=== PATIENT | male | born 1965 | race African-American/Black ===

== ENCOUNTER 2020-12-10 17:08 | Emergency (ER) | payer OTHER, SELFPAY ==
--- NOTE | 2020-12-10 17:12 | ED.SKABFB ---
HPI - Skin/Abscess/Foreign Bdy General Chief complaint: Skin/Abscess/Foreign Body Stated complaint: pos insect sting Time Seen by Provider: 12/10/20 17:12 Source: patient and RN notes reviewed Mode of arrival: ambulatory Limitations: no limitations History of Present Illness HPI narrative: 55 yo male presents to the [facility] with C/O bee sting to the right eye brow. Happened around 1 PM today. States he has been using antiitch cream and took Benadryl and states his swelling continues. Did not get stung in the eye. No blurry vision or change in vision just the eyelid is swelling. Related Data Home Medications Medication Instructions Recorded Confirmed aspirin 81 mg tablet,delayed 81 mg PO DAILY 11/29/19 11/27/20 release Allergies Allergy/AdvReac Type Severity Reaction Status Date / Time venom-honey bee Allergy Intermediate Swelling Verified 12/10/20 16:43 Review of Systems Review of Systems: All systems reviewed & are unremarkable except as noted in HPI and below Constitutional: Constitutional: Reports no additional constitutional complaints, Denies chills and Denies fever(s) Eyes: Eyes: Reports as per HPI, Denies change in vision and Denies photophobia Comments: Eyebrow and eyelid swelling ENT: Reports system reviewed and no additional complaints, except as documented, Denies vertigo, Denies nasal congestion and Denies sore throat Cardiovascular: Cardiovascular: Reports no additional cardiovascular complaints and Denies chest pain Respiratory: Respiratory: Reports no additional respiratory complaints, Denies cough and Denies dyspnea Gastrointestinal: Gastrointestinal: Reports no additional gastrointestinal complaints, Denies abdominal pain, Denies nausea and Denies vomiting Musculoskeletal: Musculoskeletal: Reports no additional musculoskeletal complaints Integumentary/Breasts: Skin/Breast: Reports as per HPI Comments: Swelling right eye lid and eyebrow from bee stings. Neurologic: Reports system reviewed and no additional complaints, except as documented Psychiatric: Psychiatric: Reports no additional psychiatric complaints Allergic/Immunologic: Allergic/Immunologic: Reports no additional allergic/immunologic complaints, Denies lip swelling, Denies throat swelling, Denies tongue swelling and Denies wheezing PMFSH Past Medical History Medical History Essential hypertension HLD (hyperlipidemia) Hypercholesterolemia Hypertension Left shoulder pain Left wrist pain Type 2 diabetes mellitus without complications Wellness examination Family History Family History Mother Carcinoma of colon Social History Social History Smoking packs per day: 0.5 Smoking cigarettes per day: 10.0 Years smoked: 25 Smoking pack-years: 12.50 Smoking status: Former smoker Tobacco type: cigarettes Second hand tobacco smoke exposure: No Smoking end date: 05/24/15 Alcohol intake: current Drinks per week: 2 Substance use: never Substance use type: does not use Gender identity (if verbalized by the patient): Male Comments At the time of my signature, I reviewed and agree with the nursing past medical, surgical, social, and family history. There is no relevant family history pertinent to the patient complaint. Exam Const: General: healthy appearing, no acute distress and alert Nutritional Appearance: well nourished Orientation/consciousness: patient oriented x3 Limitations: no limitations HENMT: Head: normal to inspection Ears: external ears normal, TM's normal bilaterally (After cerumen was removed examined) and Abnormal EAC present cerumen impaction bilateral and excessive cerumen Eyes: Conjunctivae: conjunctivae normal Pupils: Equal, round and reactive pupils present Direct Ophthalmoscopy: no photophobia Neck: Neck: normal visual inspection,
[2020-12-10 17:13] VITALS: BP 176/81; PULSE 72; RESP 16; TEMP 37.1; O2SAT 99
[2020-12-10] MEDS: predniSONE 20 MG TABLET 40 MG PO (17:42)
== END 2020-12-10 17:49 | disposition home or self-care (01) ==
PROVIDERS: Emergency Provider Nurse Practitioner; PCP Family Medicine
DX: T63.441A Toxic effect of venom of bees, accidental (unintentional), initial encounter (principal); H61.23 Impacted cerumen, bilateral; Z87.891 Personal history of nicotine dependence; I10 Essential (primary) hypertension; E78.5 Hyperlipidemia, unspecified; E78.00 Pure hypercholesterolemia, unspecified; E11.9 Type 2 diabetes mellitus without complications
CPT/HCPCS: 69210; 99213; G0463; J7512

== ENCOUNTER 2021-01-29 17:18 | Emergency (ER) | payer OTHER, SELFPAY ==
[2021-01-29 17:25] VITALS: BP 129/79; PULSE 74; RESP 16; TEMP 36.5; O2SAT 99
--- NOTE | 2021-01-29 17:30 | ED.SKABFB ---
HPI - Skin/Abscess/Foreign Bdy General Chief complaint: Skin/Abscess/Foreign Body Stated complaint: pos insect sting Source: patient and RN notes reviewed Limitations: no limitations History of Present Illness HPI narrative: The patient, previously mostly healthy on routine meds, presents with insect sting. Patient states while mowing at midday today, he sustained several hymenoptera/ground yellowjacket bee bites to his scalp along his neck hairline. He then took some Benadryl and fell asleep; currently has mild discomfort and swelling at the affected site. No other rash/eruption, cough, wheeze, hives, other swelling, oral edema. Related Data Home Medications Medication Instructions Recorded Confirmed aspirin 81 mg tablet,delayed 81 mg PO DAILY 11/29/19 11/27/20 release Allergies Allergy/AdvReac Type Severity Reaction Status Date / Time venom-honey bee Allergy Intermediate Swelling Verified 12/10/20 16:43 Review of Systems Review of Systems: General/Constitutional: No weight loss,fever Eyes: N0: Redness,discharge Ears/Nose/Throat: No: Epistaxis,ear discharge Respiratory: Denies: Hemoptysis Gastrointestinal: No Vomiting, Bleeding-rectal Skin: No Lumps, REPORTS eruption Neurologic: No Focal Weakness,Sz Hematologic: Denies: Petechiae/Purpura Psychiatric: No: Suicida ideationl All Other Systems: Reviewed and Negative [facility] [place] Past Medical History Medical History Essential hypertension HLD (hyperlipidemia) Hypercholesterolemia Hypertension Left shoulder pain Left wrist pain Type 2 diabetes mellitus without complications Wellness examination Family History Family History Mother Carcinoma of colon Social History Social History Smoking packs per day: 0.5 Smoking cigarettes per day: 10.0 Years smoked: 25 Smoking pack-years: 12.50 Smoking status: Former smoker Tobacco type: cigarettes Second hand tobacco smoke exposure: No Smoking end date: 05/24/15 Alcohol intake: current Drinks per week: 2 Substance use: never Substance use type: does not use Gender identity (if verbalized by the patient): Male Sexual Orientation (if Verbalized by the Patient): Straight or Heterosexual Comments At time of signature, agree with nursing past medical, surgical, social and family history. There is no relevant family history pertinent to the presenting complaint Exam Narrative: General Appearance: Well nourished, Normocephalic Eye: PERRLA, Conjunctiva clear Ear: External ear normal Nose: Normal nose, Nare clear Mouth/Throat: Normal appearing, Supple Respiratory: Airway patent, No respiratory distress Musculoskeletal: Moves all extremities, Non tender Skin: Warm, Dry; scattered puncta with surrounding swelling neck hairline Neurological: A&O x3, Normal affect Course Vital Signs Vital signs: Vital Signs Temperature 97.7 F 01/29/21 17:25 Pulse Rate 74 01/29/21 17:25 Respiratory Rate 16 01/29/21 17:25 Blood Pressure 129/79 01/29/21 17:25 Pulse Oximetry 99 01/29/21 17:25 Temperature 97.7 F 01/29/21 17:25 Pulse Rate 74 01/29/21 17:25 Respiratory Rate 16 01/29/21 17:25 Blood Pressure 129/79 01/29/21 17:25 Pulse Oximetry 99 01/29/21 17:25 Discharge Plan Discharge Clinical Impression: Insect bite Qualifiers: Encounter type: initial encounter Site of insect bite: unspecified part of neck Qualified Code(s): S10.96XA - Insect bite of unspecified part of neck, initial encounter Patient Disposition: Home, Self-Care Condition: Stable Instructions: Insect Bite or Sting (ED) Prescriptions: New prednisone 20 mg tablet 60 mg PO DAILY Qty: 9 RF: 0 loratadine [Claritin] 10 mg tablet 10 mg PO DAILY Qty: 20 RF: 1 No Action aspirin [Adult Low Dose Aspirin] 81 mg tablet,delayed r
== END 2021-01-29 17:37 | disposition home or self-care (01) ==
PROVIDERS: Emergency Provider Emergency Medicine; PCP Family Medicine
DX: T63.461A Toxic effect of venom of wasps, accidental (unintentional), initial encounter (principal); I10 Essential (primary) hypertension; E78.5 Hyperlipidemia, unspecified; E78.00 Pure hypercholesterolemia, unspecified; E11.9 Type 2 diabetes mellitus without complications; Z87.891 Personal history of nicotine dependence
CPT/HCPCS: 99213; G0463

== ENCOUNTER 2021-09-03 00:24 | Day surgery (SDC) | payer OTHER, SELFPAY ==
[2021-08-21 15:26] VITALS: BMI 27.8
--- NOTE | 2021-09-02 10:57 | P.PNAN_ITS ---
Anes - Initial Pre Proc Eval Procedure: Operation Date: 09/03/21 09:30 Proposed Procedures p Screening Colonoscopy - Ramon Tracey MD Date/Time: 09/02/21 10:57 Surgeon: Ramon Tracey MD Pre Op Diagnosis: hx of colon polyps,family hx of colon ca,neoplasm Patient Data Age: 56 Gender: M Height: 1.83 m Weight: 93.2 kg Allergies Allergy/AdvReac Type Severity Reaction Status Date / Time venom-honey bee Allergy Intermediate Swelling Verified 09/03/21 08:19 Home Medications Medication Instructions Recorded Confirmed Type aspirin 81 mg tablet,delayed 81 mg PO DAILY 11/29/19 08/21/21 History release lisinopril 10 1 tablet PO DAILY #90 tablet 05/01/21 08/21/21 Rx mg-hydrochlorothiazide 12.5 mg tablet pravastatin 10 mg tablet 10 mg PO DAILY #90 tablet 05/01/21 08/21/21 Rx loratadine [Claritin] 10 mg PO DAILY PRN 08/21/21 08/21/21 History Patient hx anesthesia problems: none Family hx anesthesia problems: none Results Review: All pre-operative results and documents have been reviewed as part of the pre-operative evaluation. [facility] Past Medical History Medical History Essential hypertension HLD (hyperlipidemia) Hypercholesterolemia Hypertension Left shoulder pain Left wrist pain Type 2 diabetes mellitus without complications Wellness examination Family History Family History Mother Carcinoma of colon Social History Social History Smoking packs per day: 1 Smoking cigarettes per day: 20.0 Years smoked: 20 Smoking pack-years: 20.00 Smoking status: Former smoker Tobacco type: cigarettes Second hand tobacco smoke exposure: No Smoking end date: 05/24/15 Alcohol intake: current Drinks per week: 5 Substance use: never Substance use type: does not use Living arrangements: with friend(s) Gender identity (if verbalized by the patient): Male Sexual Orientation (if Verbalized by the Patient): Straight or Heterosexual Spiritual care concerns: No Anes - Eval Final PreProcedure Day of Procedure 09/02/21 10:57 Patient weight: overweight Heart: regular rate and rhythm Lungs: clear to auscultation and normal air movement Airway: Mallampati scale class II Neurological: alert and oriented Last oral intake: >/= 8 hours ASA classification: III Emergent: no Anesthetic plan: proceed Anesthesia type and monitoring: general GIVS and standard monitoring Results Review: All pre-operative results and documents have been reviewed as part of the pre-operative evaluation. Informed Consent: The patient's anesthetic plan and its attendant risks and benefits were discussed with the patient/family/POA. Questions were solicited and answers provided to the satisfaction of the patient/family/POA.
--- NOTE | 2021-09-02 17:39 | PM.HPGS ---
History of Present Illness History of Present Illness Consent: Risks, benefits, and alternatives have been discussed and questions answered. Patient agrees to proceed with procedure. Chief complaint: hx of colon polyps,family hx of colon ca,neoplasm Narrative: Renny Askew is a 56 year old male Referred for colon cancer screening. He had 2 adenomas removed about 5 years ago and also has a family history of colon cancer. His mother had colon cancer. Review of Systems Review of Systems: All systems reviewed & are unremarkable except as noted in HPI and below PMFSH Past Medical History Medical History Essential hypertension HLD (hyperlipidemia) Hypercholesterolemia Hypertension Left shoulder pain Left wrist pain Type 2 diabetes mellitus without complications Wellness examination Family History Family History Mother Carcinoma of colon Social History Social History Smoking packs per day: 1 Smoking cigarettes per day: 20.0 Years smoked: 20 Smoking pack-years: 20.00 Smoking status: Former smoker Tobacco type: cigarettes Second hand tobacco smoke exposure: No Smoking end date: 05/24/15 Alcohol intake: current Drinks per week: 5 Substance use: never Substance use type: does not use Living arrangements: with friend(s) Gender identity (if verbalized by the patient): Male Sexual Orientation (if Verbalized by the Patient): Straight or Heterosexual Spiritual care concerns: No Meds Home Medications and Allergies Home Medications Medication Instructions Recorded Confirmed Type aspirin 81 mg tablet,delayed 81 mg PO DAILY 11/29/19 08/21/21 History release lisinopril 10 1 tablet PO DAILY #90 tablet 05/01/21 08/21/21 Rx mg-hydrochlorothiazide 12.5 mg tablet pravastatin 10 mg tablet 10 mg PO DAILY #90 tablet 05/01/21 08/21/21 Rx loratadine [Claritin] 10 mg PO DAILY PRN 08/21/21 08/21/21 History Allergies Allergy/AdvReac Type Severity Reaction Status Date / Time venom-honey bee Allergy Intermediate Swelling Verified 09/03/21 08:19 Exam Resp: Auscultation: clear to auscultation bilaterally Cardio: Rate: regular rate Rhythm: regular rhythm GI: GI Palp: Yes Soft to palpation and No Tenderness to palpation present (GI) Assessment and Plan Assessment and plan (1) Colon cancer screening: Code(s): Z12.11 - Encounter for screening for malignant neoplasm of colon Status: Acute Assessment and Plan: Colonoscopy with possible biopsy or polypectomy or cautery or injection of substances.
[2021-09-03 08:20] VITALS: BP 141/88; PULSE 58; RESP 17; TEMP 36.2; O2SAT 100
[2021-09-03] MEDS: LACTATED RINGERS 1,000 ML 150 ML IV CONT (08:28)
[2021-09-03] MEDS: SIMETHICONE ORAL SUSPENSION 20 MG/0.3 ML 30 ML BOTTLE 0.6 ML IRRIGATION (09:20)
[2021-09-03 09:29] VITALS: BP 109/70; PULSE 59; RESP 19; O2SAT 97
[2021-09-03 09:39] VITALS: BP 127/80; PULSE 67; RESP 26; O2SAT 98
== END 2021-09-03 09:57 | disposition home or self-care (01) ==
PROVIDERS: PCP Family Medicine; Visit Provider Internal Medicine Gastroenterology
PROC: 0DJD8ZZ Inspection of Lower Intestinal Tract, Via Natural or Artificial Opening Endoscopic (ICD-10-PCS; CPT 45378; principal; 2021-09-03 09:30)
DX: Z12.11 Encounter for screening for malignant neoplasm of colon (principal); Z86.010 Personal history of colon polyps; Z80.0 Family history of malignant neoplasm of digestive organs; I10 Essential (primary) hypertension; E78.5 Hyperlipidemia, unspecified; E78.00 Pure hypercholesterolemia, unspecified; E11.9 Type 2 diabetes mellitus without complications; Z87.891 Personal history of nicotine dependence
CPT/HCPCS: 45378; J2704; J7120

== ENCOUNTER 2021-10-03 19:25 | Emergency (ER) | payer OTHER, SELFPAY ==
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
[2021-10-03 19:44] VITALS: BP 167/78; PULSE 83; RESP 18; TEMP 37.1; O2SAT 97
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
[2021-10-03] MEDS: IBUPROFEN 600 MG TABLET PO (20:57)
[2021-10-03 21:59] VITALS: BP 137/84; PULSE 68; RESP 16; O2SAT 98
== END 2021-10-03 21:59 | disposition home or self-care (01) ==
LOC: ANHED 21:25
PROVIDERS: Emergency Provider Emergency Medicine; PCP Family Medicine
DX: S16.1XXA Strain of muscle, fascia and tendon at neck level, initial encounter (principal); S29.9XXA Unspecified injury of thorax, initial encounter; I10 Essential (primary) hypertension; E78.5 Hyperlipidemia, unspecified; E11.9 Type 2 diabetes mellitus without complications; Z79.82 Long term (current) use of aspirin; Z87.891 Personal history of nicotine dependence; M47.812 Spondylosis without myelopathy or radiculopathy, cervical region; M47.814 Spondylosis without myelopathy or radiculopathy, thoracic region; V53.5XXA Driver of pick-up truck or van injured in collision with car, pick-up truck or van in traffic accident, initial encounter
CPT/HCPCS: 71046; 72072; 72125; 99284; A9270

== ENCOUNTER 2022-03-12 09:33 | Outpatient (CLI) | payer OTHER, SELFPAY ==
--- NOTE | ~2022-03-12 | US_ITS ---
EXAMINATION: US carotid duplex BI DATE: 03/12/2022 10:16 INDICATION: Syncope TECHNIQUE: Grayscale, color Doppler, and pulsed Doppler images of the cervical carotid arteries were obtained. The degree of vessel stenosis is placed in one of the following categories: normal, <50%, 5 0-69%, >=70% but less than near-occlusion, near-occlusion, or total occlusion. Note that percent sten osis relative to normal distal artery lumen diameter is indirectly measured from velocity measurement s as described by Best, et al. Radiology 2003; [id number]. Notes: Normal: Peak systolic velocity <125 centimeters/sec and no plaque <50%. Peak systolic velocity <125 ( EDV <40; ICA/CCA PSV ratio <2.0; used these factors only a tandem lesions or low cardiac output or co ntralateral disease) 50-69 %: PSV 125-230 (EDV 40-100; ratio 2-4) >= 70% but less than near occlusion: PSV greater than 230 (EDV > 100; ratio> 4.0) Near Occlusion: PSV that is variable; markedly narrowed lumen Occlusion: Absent flow on color/spectral Doppler and no lumen on castillo scale. COMPARISON: None. FINDINGS: RIGHT: The right common carotid artery (CCA) peak systolic velocity (PSV) is 111 cm/s. The right internal ca rotid artery (ICA) PSV is 54 cm/s. The right ICA end-diastolic velocity (EDV) is 15 cm/s. The right I CA/CCA PSV ratio is 0.9. The external carotid artery (ECA) PSV is 106 cm/s. There is antegrade flow i n the right vertebral artery. LEFT: The left CCA PSV is 116 cm/s. The left ICA PSV is 83 cm/s. The left ICA EDV is 37 cm/s. The left ICA/ CCA PSV ratio is 1.3. The ECA PSV is 148 cm/s. There is antegrade flow in the left vertebral artery. IMPRESSION: 1. Less than 50% stenosis in the right internal carotid artery by sonographic criteria. 2. Less than 50% stenosis in the left internal carotid artery by sonographic criteria. Reviewed, dictated and finalized at location A. IMPRESSION: 1. Less than 50% stenosis in the right internal carotid artery by sonographic amparo mejias. 2. Less than 50% stenosis in the left internal carotid artery by sonographic la nena fink.
== END 2022-03-12 09:34 | disposition home or self-care (01) ==
LOC: ANHIMG 09:34
PROVIDERS: PCP Family Medicine; Visit Provider Physician Assistant
DX: R55 Syncope and collapse (principal); I65.23 Occlusion and stenosis of bilateral carotid arteries
CPT/HCPCS: 93880

== ENCOUNTER 2022-08-25 11:19 | Outpatient (CLI) | payer OTHER, SELFPAY ==
--- NOTE | ~2022-08-25 | CT_ITS ---
EXAMINATION: CT lung screening DATE: 08/25/2022 11:50 INDICATION: lung cancer screening TECHNIQUE: Computed tomography (CT) of the chest was performed without intravenous contrast. Addition al 3D reconstructions utilizing coronal maximum intensity projection (MIP) were performed. Automated exposure control and iterative reconstruction technique were employed. The dose-length product was 12 9.55 mGy-cm. COMPARISON: None FINDINGS: Small calcified nodule at the left apex. 1 mm not clearly calcified nodules in the lingula and right lower lobe. Minimal discoid atelectasis at the caudal aspect of the lingula. No pneumonia, pulmonary edema, pleural effusion or pneumothorax. Heart size is normal. No pericardial effusion. Thoracic aort a is normal in caliber. No pathologically enlarged thoracic lymphadenopathy. Minimal gynecomastia. Mi nimal upper thoracic dextrocurvature. IMPRESSION: 1. . Lung-RADS category 2: Benign appearance or behavior. Continue annual screening with noncontrast low-dose chest CT in 12 months. Reviewed, dictated and finalized at location A. IMPRESSION: 1. . Lung-RADS category 2: Benign appearance or behavior. Continue annual scree dieter with noncontrast low-dose chest CT in 12 months.
== END 2022-08-25 11:20 | disposition home or self-care (01) ==
PROVIDERS: PCP Family Medicine; Visit Provider Physician Assistant
DX: Z12.2 Encounter for screening for malignant neoplasm of respiratory organs (principal); Z87.891 Personal history of nicotine dependence
CPT/HCPCS: 71271

== ENCOUNTER 2022-11-05 07:26 | Outpatient (CLI) | payer OTHER, SELFPAY ==
--- NOTE | 2022-11-05 07:36 | ECHO_ITS ---
Patient Info Name: Renny Askew Age: 57 years : 1965 Gender: Male Ht: 72 in Wt: 200 lbs BSA: 2.16 m2 HR: 60 bpm BP: 111 / 78 mmHg Technical Quality: Good Exam Date: 11/05/2022 7:46 AM Exam Location: [facility] Patient Status: Outpatient Admit Date: 11/05/2022 Staff Ordering Physician: Donovan Valente DO Inspection Engineer: Rayna Quiroz RDCS Attending Provider: Donovan Valente DO Referring Physician: Ambrosio FELICIANO; Exam Type: CA echo doppler color flow Study Info Indications R06.09 - Other forms of dyspnea Complete two-dimensional, color flow and Doppler transthoracic echocardiogram is performed. Summary 1. Complete two-dimensional, color flow and Doppler transthoracic echocardiogram is performed. 2. Left ventricular chamber dimension is normal. 3. Left ventricular systolic function is normal, estimated at 60-65%. 4. The left ventricular diastolic function is grade I diastolic dysfunction. 5. E/e' 5 is not elevated. 6. Global longitudinal strain is abnormal at -15.4%. 7. Left atrial chamber dimension is mildly enlarged. 8. There is mild mitral valve regurgitation. 9. There is trace tricuspid valve regurgitation. Left Ventricle E/e' 5 is not elevated. Global longitudinal strain is abnormal at -15.4%. Left ventricular chamber dimension is normal. Left ventricular systolic function is normal, estimated at 60-65%. The left ventricular diastolic function is grade I diastolic dysfunction. Right Ventricle Right ventricular systolic function is normal and with normal TAPSE 2.4 cm. Right ventricular chamber dimension is normal. Left Atria Left atrial chamber dimension is mildly enlarged. Right Atria Right atrial chamber dimension is normal. Aortic Valve The aortic valve is trileaflet. There is no aortic valve stenosis. There is no aortic valve regurgitation. Pulmonic Valve There is no pulmonic regurgitation. Mitral Valve There is no mitral valve stenosis. There is mild mitral valve regurgitation. Tricuspid Valve There is trace tricuspid valve regurgitation. RVSP is not calculated due to an inadequate TR jet. Pericardium/Pleural There is no pericardial effusion. Inferior Vena Cava Normal inferior vena cava with >50% collapse upon inspiration consistent with normal right atrial pressure, 5 mmHg. Aorta The aortic root size at the sinus of Valsalva is normal. Left Ventricular Outflow Tract Name Value Normal LVOT 2D LVOT Diameter 2.0 cm LVOT Doppler LVOT Peak Gradient 5 mmHg LVOT Mean Gradient 2 mmHg LVOT VTI 22 cm LVOT VTI/AV VTI Ratio 0.9 LVOT Stroke Volume 72 ml LVOT CO 3.7 l/min LVOT CI 1.7 l/min/m2 Pulmonic Valve Name Value Normal RVOT Doppler RVOT Peak Gradient 1 mmHg PV Doppler
== END 2022-11-05 07:27 | disposition home or self-care (01) ==
LOC: ANHCARD 07:28
PROVIDERS: PCP Family Medicine; Visit Provider Internal Medicine Cardiovascular Disease
DX: R06.09 Other forms of dyspnea (principal); R93.1 Abnormal findings on diagnostic imaging of heart and coronary circulation; I34.0 Nonrheumatic mitral (valve) insufficiency
CPT/HCPCS: 93306

== ENCOUNTER 2023-02-15 09:23 | Outpatient (CLI) | payer OTHER, SELFPAY ==
--- NOTE | 2023-02-15 10:30 | NEURO_ITS ---
Impression: Patient reports numbness and tingling in both hands. # Mild, left Carpal Tunnel Syndrome. # Early changes suggestive of evolving, right Carpal Tunnel Syndrome. # Normal needle/EMG exam. # Clinical correlation recommended. Nerve Conduction Studies Anti Sensory Summary Table Stim Site NR Peak (ms) P-T Amp (?V) Site1 Site2 Delta-P (ms) Dist (cm) Benedict (m/s) Left Median Anti Sensory (2-3nd Digit) Wrist 4.5 23.5 Wrist 2-3nd Digit 4.5 14.0 31 Wrist 5.0 13.2 Wrist 2-3nd Digit 4.5 14.0 31 Right Median Anti Sensory (2-3nd Digit) Wrist 3.9 25.9 Wrist 2-3nd Digit 3.9 14.0 36 Wrist 3.8 28.2 Wrist 2-3nd Digit 3.9 14.0 36 Left Radial Anti Sensory (Base 1st Digit) Wrist 1.9 33.4 Wrist Base 1st Digit 1.9 0.0 Right Radial Anti Sensory (Base 1st Digit) Wrist 2.0 44.1 Wrist Base 1st Digit 2.0 0.0 Left Ulnar Anti Sensory (5th Digit) Wrist 2.8 27.4 Wrist 5th Digit 2.8 14.0 50 Right Ulnar Anti Sensory (5th Digit) Wrist 2.2 37.8 Wrist 5th Digit 2.2 14.0 64 Motor Summary Table Stim Site NR Onset (ms) O-P Amp (mV) Site1 Site2 Delta-0 (ms) Dist (cm) Benedict (m/s) Left Median Motor (Abd Poll Brev) Wrist 4.2 7.7 Elbow Wrist 4.1 23.0 56 Elbow 8.3 7.1 Right Median Motor (Abd Poll Brev) Wrist 3.7 7.0 Elbow Wrist 4.0 24.0 60 Elbow 7.7 6.4 Left Ulnar Motor (Abd Dig Minimi) Wrist 2.4 5.8 A Elbow Wrist 5.3 30.0 57 A Elbow 7.7 4.6 B Elbow Wrist 3.5 21.0 60 B Elbow 5.9 5.0 Right Ulnar Motor (Abd Dig Minimi) Wrist 2.3 5.6 A Elbow Wrist 5.4 30.0 56 A Elbow 7.7 4.2 B Elbow Wrist 3.6 21.0 58 B Elbow 5.9 4.5 F Wave Studies NR F-Lat (ms) L-R F-Lat (ms) Left Median (Mrkrs) (Abd Poll Brev) 29.94 0.10 Right Median (Mrkrs) (Abd Poll Brev) 29.84 0.10 Left Ulnar (Mrkrs) (Abd Dig Min) 28.43 1.44 Right Ulnar (Mrkrs) (Abd Dig Min) 29.87 1.44 EMG Side Muscle Nerve Root Ins Act Fibs Amp Dur Recrt Comment Right 1stDorInt Ulnar C8-T1 Nml Nml Nml Nml Nml Right Ext Indicis Radial (Post Int) C7-8 Nml Nml Nml Nml Nml Right Ext Digitorum Radial (Post Int) C7-8 Nml Nml Nml Nml Nml Right BrachioRad Radial C5-6 Nml Nml Nml Nml Nml Right PronatorTeres Median C6-7 Nml Nml Nml Nml Nml Right Abd Poll Brev Median C8-T1 Nml Nml Nml Nml Nml Left 1stDorInt Ulnar C8-T1 Nml Nml Nml Nml Nml Left Ext Indicis Radial (Post Int) C7-8 Nml Nml Nml Nml Nml Left Ext Digitorum Radial (Post Int) C7-8 Nml Nml Nml Nml Nml Left BrachioRad Radial C5-6 Nml Nml Nml Nml Nml Left PronatorTeres Median C6-7 Nml Nml Nml Nml Nml Left Abd Poll Brev Median C8-T1 Nml Nml Nml Nml Nml MTDD
== END 2023-02-15 09:24 | disposition home or self-care (01) ==
LOC: ANHNEURO 09:23
PROVIDERS: PCP Family Medicine; Visit Provider Family Medicine
DX: G56.03 Carpal tunnel syndrome, bilateral upper limbs (principal)
CPT/HCPCS: 95886; 95911

== ENCOUNTER 2023-04-24 11:24 | Emergency (ER) | payer OTHER, SELFPAY ==
[2023-04-24 11:31] VITALS: BP 140/103; PULSE 65; RESP 16; TEMP 36.7; O2SAT 100
--- NOTE | 2023-04-24 12:16 | ED.URI ---
HPI - URI/Sore Throat General Chief Complaint: Upper Respiratory Infection Stated Complaint: Cough Time Seen by Provider: 04/24/23 12:10 Source: patient, RN notes reviewed and old records reviewed Mode of arrival: ambulatory Limitations: no limitations History of Present Illness HPI Narrative: 58 year old male presents to express care with complaints of of hoarseness and cough since Wednesday. Patient reports that he has been taking Mucinex for his symptoms and the mucous is thick yellow and feels like it is getting stuck in his throat.Patient states that he called his doctor after testing negative for COVID on the and his PCP called in Tessalon Perles and also Medrol dose pack. Patient denies any body aches,reports that he has no fever, chills or sweats. MD elicited complaint: cough Onset (ago): day(s) (5 days) Severity: moderate Description of mucous: yellow Able to tolerate fluids by mouth: Yes Treatments prior to arrival: other (Mucinex, tessalon perles and medrol dose pack) Related Data Allergies Allergy/AdvReac Type Severity Reaction Status Date / Time venom-honey bee Allergy Intermediate Swelling Verified 03/25/23 11:03 Review of Systems Review of Systems: CONSTITUTIONAL: Reports malaise, no chills, sweats, or fever. EYES: Denies visual changes, redness, or discharge. ENT: Reports rhinorrhea, congestion, sinus pain,no otalgia and states itchy throat. CARDIOVASCULAR: Denies chest pain, palpitations, or edema. RESPIRATORY: Reports cough.? Denies dyspnea. GASTROINTESTINAL: Denies abdominal pain, nausea, vomiting, diarrhea SKIN: Denies rash or itching. MUSCULOSKELETAL: Denies myalgia. NEUROLOGIC: Denies headache. All systems reviewed & are unremarkable except as noted in HPI and below PMFSH Past Medical History Medical History (Updated 04/25/23 @ 00:00 by Background Daemon) Essential hypertension HLD (hyperlipidemia) Hypercholesterolemia Hypertension Left shoulder pain Left wrist pain Type 2 diabetes mellitus without complications Wellness examination Surgical History Surgical History (Updated 04/26/23 @ 21:12 by Cathy Mancuso NP) History of skin graft Family History Family History Mother Carcinoma of colon Social History Social History Smoking packs per day: 1 Smoking cigarettes per day: 20.0 Years smoked: 20 Smoking pack-years: 20.00 Smoking status: Former smoker Tobacco type: cigarettes Second hand tobacco smoke exposure: No Smoking end date: 05/24/15 Alcohol intake: current Drinks per week: 5 Substance use: never Substance use type: does not use Living arrangements: with friend(s) Occupation/Education: occupation Gender identity (if verbalized by the patient): Male Sexual Orientation (if Verbalized by the Patient): Straight or Heterosexual Spiritual care concerns: No Comments At time of signature, agree with nursing past medical, surgical, social and family history. There is no relevant family history pertinent to the presenting complaint Exam Narrative: GENERAL: Well-appearing, well-nourished, and in no acute distress. HEAD: Normocephalic EYES: PERRLA, conjunctivae clear ENT: Nares clear, turbinates edematous and erythematous, clear discharge. Mucous membranes moist. TM pearly castillo with dull light reflex bilaterally; no tragal tenderness. Oropharynx erythematous without lesions. Tonsils not enlarged and without exudate, no drooling, no hoarseness, no trismus, uvula midline.post nasal drainage NECK: Supple. No lymphadenopathy CHEST: Clear to auscultation, breath sounds equal. No wheezing, rhonchi, rales, or stridor. No respiratory distress, speaks in full sentences.cough noted,SAO2 100% on room air HEART: Regular rate and rhythm. No murmur heard. SKIN: Warm, dry, no rash. NEURO: Alert and oriented x3. PSY
== END 2023-04-24 12:44 | disposition home or self-care (01) ==
PROVIDERS: Emergency Provider Registered Nurse; PCP Family Medicine
DX: J06.9 Acute upper respiratory infection, unspecified (principal); Z87.891 Personal history of nicotine dependence; I10 Essential (primary) hypertension; E78.5 Hyperlipidemia, unspecified; E78.00 Pure hypercholesterolemia, unspecified; E11.9 Type 2 diabetes mellitus without complications
CPT/HCPCS: 99213; G0463

== ENCOUNTER 2023-05-05 14:53 | Outpatient (CLI) | payer OTHER, SELFPAY ==
--- NOTE | ~2023-05-05 | XR_ITS ---
EXAMINATION: XR chest 2V Exam Date/Time: 05/05/2023 15:02 PACKAGING MANAGER HISTORY: R05.9 - Cough, unspecified Comparison: 10/03/2021. RESULT: Lines, tubes, and devices: None. Lungs and pleura: Clear. Cardiomediastinal silhouette: Stable. Other: No acute osseous or upper abdominal finding. IMPRESSION: No acute cardiopulmonary process. Reviewed, dictated and finalized at location K. AGING MANAGER
== END 2023-05-05 14:54 | disposition home or self-care (01) ==
PROVIDERS: PCP Family Medicine; Visit Provider Family Medicine
DX: R05.9 Cough, unspecified (principal)
CPT/HCPCS: 71046

== ENCOUNTER 2023-08-10 11:33 | Outpatient (CLI) | payer OTHER, SELFPAY ==
--- NOTE | ~2023-08-10 | XR_ITS ---
EXAM: XR_[id number]_CR DATE: 08/10/2023 11:50 HISTORY: NON TRAUMA NECK AND RIGHT SHOULDER PAIN . COMPARISON: 12/20/2006. FINDINGS: Craniocervical association and atlantoaxial joint are aligned. No prevertebral soft tissue swelling. Vertebral bodies are aligned. Cervical straightening. Vertebral body heights are maintaine d. Normal disc spaces. Disc space narrowing and marginal osteophytosis at C2-3 through C6-7, moderate at C5-6 and C6-7. Multilevel mild facet sclerosis. IMPRESSION: Moderate degenerative disc disease at C5-6 and C6/7. Multilevel mild facet arthropathy. Reviewed, dictated and finalized at location K. IMPRESSION: Moderate degenerative disc disease at C5-6 and C6/7. Multilevel mil d facet arthropathy.
== END 2023-08-10 11:34 | disposition home or self-care (01) ==
PROVIDERS: PCP Family Medicine; Visit Provider Family Medicine
DX: M50.322 Other cervical disc degeneration at C5-C6 level (principal)
CPT/HCPCS: 72040

== ENCOUNTER 2023-09-08 14:04 | Outpatient (CLI) | payer OTHER, SELFPAY ==
--- NOTE | ~2023-09-08 | CT_ITS ---
EXAMINATION:CT lung screening DATE: 09/08/2023 14:38 INDICATION: Personal history of nicotine dependence. Smoker who quit 7 years ago with 30 pack year hi story. TECHNIQUE: Computed tomography (CT) of the chest was performed without intravenous contrast. Automate d exposure control and iterative reconstruction technique were employed. The dose-length product (DLP ) was 134.24 mGy-cm. COMPARISON: None. FINDINGS: The lungs demonstrate mild atelectasis. A calcified left lung nodule is consistent with old granulomatous disease. No pleural effusion. The heart size is normal. No pericardial effusion. There is mild bilateral gynecomastia. There is mild thoracic spondylosis. IMPRESSION: 1. Lung-RADS category 1: Negative. Continue annual screening with noncontrast low-dose chest CT in 12 months. Reviewed, dictated and finalized at location E. IMPRESSION: 1. Lung-RADS category 1: Negative. Continue annual screening with noncontrast l ow-dose chest CT in 12 months.
== END 2023-09-08 14:05 | disposition home or self-care (01) ==
PROVIDERS: PCP Family Medicine; Visit Provider Family Medicine
DX: Z12.2 Encounter for screening for malignant neoplasm of respiratory organs (principal); Z87.891 Personal history of nicotine dependence
CPT/HCPCS: 71271

== ENCOUNTER 2024-03-03 19:03 | Emergency (ER) | payer OTHER, SELFPAY ==
[2024-03-03 19:09] VITALS: BP 121/71; PULSE 76; RESP 16; TEMP 36.6; O2SAT 97
--- NOTE | 2024-03-03 19:11 | ED.URI ---
HPI - URI/Sore Throat General Chief Complaint: Upper Respiratory Infection Stated Complaint: cough,congestion Source: patient Mode of arrival: ambulatory Limitations: no limitations History of Present Illness HPI Narrative: 59-year-old male history of hypertension and diabetes presented for complaint of productive cough x1 week. Also reports nasal congestion and pressure. PCP advised otc meds for symptoms for allergies and mucous without improvement. Endorses bilateral lower rib pain at times with coughing. Cough is worse when laying down. Denies chest pain, palpitations, sob, wheezing, n/v/d/f/c. MD elicited complaint: cough Related Data Allergies Allergy/AdvReac Type Severity Reaction Status Date / Time venom-honey bee Allergy Intermediate Swelling Verified 01/27/24 15:54 Review of Systems Review of Systems: CONSTITUTIONAL: Denies body aches, fever, chills, or sweats. EYES: Denies visual changes, redness, or discharge. ENT: Denies rhinorrhea, congestion, sore throat, or otalgia. CARDIOVASCULAR: Denies chest pain, palpitations, or edema. RESPIRATORY: Reports cough,denies sob, wheezing. GASTROINTESTINAL: Denies abdominal pain, nausea, vomiting, or diarrhea. SKIN: Denies rash, itching, or wounds. MUSCULOSKELETAL: Denies back pain, joint pain, or myalgia. NEUROLOGIC: Denies headache, numbness, tingling, or weakness. All systems reviewed & are unremarkable except as noted in HPI and below PMFSH Past Medical History Medical History Essential hypertension HLD (hyperlipidemia) Hypercholesterolemia Hypertension Left shoulder pain Left wrist pain Type 2 diabetes mellitus without complications Wellness examination Surgical History Surgical History History of skin graft Family History Family History Mother Carcinoma of colon Social History Social History Social History: Smoking packs per day: 1 Smoking cigarettes per day: 20.0 Years smoked: 20 Smoking pack-years: 20.00 Smoking status: Former smoker Tobacco type: cigarettes Second hand tobacco smoke exposure: No Smoking end date: 05/24/15 Alcohol intake: current Drinks per week: 5 Substance use: never Substance use type: does not use Do You Feel Safe in your Home?: Yes Lack of Transportation: No Lack of Food: Never True Current Housing: I Have Housing Concerned About Future Housing: No Difficulty Paying Gas/Electric Bills: No Difficulty Paying for Meds: No Currently Unemployed: No Education: Don't Know Difficulty w/ Childcare or Family Care: No Living arrangements: with friend(s) Occupation/Education: occupation Gender identity (if verbalized by the patient): Male Sexual Orientation (if Verbalized by the Patient): Straight or Heterosexual Spiritual care concerns: No Comments At time of signature, I have reviewed and agree with nursing past medical, surgical, social and family history unless otherwise noted. Please see nursing chart for further information. There is no relevant family history pertinent to the presenting complaint Exam Narrative: GENERAL: Well-appearing, in no acute distress. EYES: EOMI. No redness or drainage. Conjunctivae normal. ENT: Mucous membranes pink and moist. No rhinorrhea. TMs normal bilaterally. Throat normal. Uvula midline. NECK: Normal AROM. Supple. CHEST: No respiratory distress. lungs clear to all henao. HEART: Regular rate and rhythm. No murmur appreciated. EXTREMITIES: Normal range of motion. No edema. SKIN: Warm, dry, no rash. Capillary refill normal. Normal skin turgor. NEURO: Alert and oriented x3. Gait steady. Course Course Emergency Course: Patient is aware of diagnosis, understands and agrees to treatment plan. Aly
== END 2024-03-03 19:26 | disposition home or self-care (01) ==
PROVIDERS: Emergency Provider Nurse Practitioner Family; PCP Family Medicine
DX: J40 Bronchitis, not specified as acute or chronic (principal); Z87.891 Personal history of nicotine dependence; I10 Essential (primary) hypertension; E78.5 Hyperlipidemia, unspecified; E78.00 Pure hypercholesterolemia, unspecified; E11.9 Type 2 diabetes mellitus without complications
CPT/HCPCS: 99213; G0463

== ENCOUNTER 2024-05-21 13:17 | Emergency (ER) | payer OTHER, SELFPAY ==
[2024-05-21 13:26] VITALS: BP 132/84; PULSE 90; RESP 16; TEMP 36.9; O2SAT 100
--- NOTE | 2024-05-21 14:19 | ED.URI ---
HPI - URI/Sore Throat General Chief Complaint: Upper Respiratory Infection Stated Complaint: Sore Throat Time Seen by Provider: 05/21/24 14:11 Source: patient and RN notes reviewed Mode of arrival: ambulatory Limitations: no limitations History of Present Illness HPI Narrative: Patient presents today complaining of sore throat, cough chest wall pain, postnasal drainage. Denies shortness of breath or fever. Symptoms began this morning after he slept with his bedroom window open last night. He has tried Mucinex a few hours ago without relief. Home COVID test negative yesterday Related Data Allergies Allergy/AdvReac Type Severity Reaction Status Date / Time venom-honey bee Allergy Intermediate Swelling Verified 05/21/24 13:23 Review of Systems Review of Systems: CONSTITUTIONAL: Denies body aches, fever, chills, or sweats. EYES: Denies visual changes, redness, or discharge. ENT: Denies rhinorrhea, congestion, or otalgia.+ sore throat, postnasal drip CARDIOVASCULAR: Denies chest pain, palpitations, or edema. RESPIRATORY: Denies dyspnea.+ cough GASTROINTESTINAL: Denies abdominal pain, nausea, vomiting, or diarrhea. GENITOURINARY: Denies dysuria or hematuria. SKIN: Denies rash, itching, or wounds. MUSCULOSKELETAL: Denies back pain, joint pain, or myalgia. NEUROLOGIC: Denies headache, numbness, tingling, or weakness. PSYCH: Denies depression or anxiety. [facility] Past Medical History Medical History Left wrist pain Left shoulder pain Type 2 diabetes mellitus without complications HLD (hyperlipidemia) Essential hypertension Wellness examination Hypercholesterolemia Hypertension Surgical History Surgical History History of skin graft Family History Family History Mother Carcinoma of colon Social History Social History Social History: Smoking packs per day: 1 Smoking cigarettes per day: 20.0 Years smoked: 20 Smoking pack-years: 20.00 Smoking status: Former smoker Tobacco type: cigarettes Second hand tobacco smoke exposure: No Smoking end date: 05/24/15 Alcohol intake: current Drinks per week: 5 Substance use: never Substance use type: does not use Do You Feel Safe in your Home?: Yes Lack of Transportation: No Lack of Food: Never True Current Housing: I Have Housing Concerned About Future Housing: No Difficulty Paying Gas/Electric Bills: No Difficulty Paying for Meds: No Currently Unemployed: No Education: Don't Know Difficulty w/ Childcare or Family Care: No Living arrangements: with friend(s) Occupation/Education: occupation Gender identity (if verbalized by the patient): Male Sexual Orientation (if Verbalized by the Patient): Straight or Heterosexual Spiritual care concerns: No Comments At time of signature, I have reviewed and agree with nursing past medical, surgical, social and family history unless otherwise noted. Please see nursing chart for further information. There is no relevant family history pertinent to the presenting complaint Exam Narrative: GENERAL: Well-appearing, well-nourished, and in no acute distress. HEAD: Normocephalic, atraumatic. EYES: EOMI. No redness or drainage. Conjunctivae normal. ENT: Mucous membranes pink and moist. Nares clear. No rhinorrhea. TMs normal bilaterally. Throat normal. Uvula midline. NECK: Normal AROM. Supple. No lymphadenopathy. CHEST: No respiratory distress. Clear to auscultation. HEART: Regular rate and rhythm. No murmur appreciated. EXTREMITIES: Normal range of motion. No edema. SKIN: Warm, dry, no rash. Capillary refill normal. Normal skin turgor. NEURO: No focal deficits. Alert and oriented x3. Gait steady. PSYCH: Normal affect. No signs of depression or anxiety. Course Course Level of Care: Express Care Visit Vital Signs Vital signs: Vital Signs Temperature 98.5 F 05/21/24 13:26 Pulse Rate 90 05/21/24 13:26 Respiratory Rate 16 05/21/24 13:26 Blood Pressure 132/84 05/21/24 13:26 Pulse Oximetry 100 05/21/24 13:26 Temperature 98.5 F 05/21/24 13:26 Pulse Rate 90 05/21/24 13:26 Respiratory Rate 16 05/21/24 13:26 Blood Pressure 132/84 05/21/24 13:26 Pulse Oximetry 100 05/21/24 13:26 Reviewed MDM - URI/Sore Throat MDM Narrative Medical decision making narrative: Patient declined influenza testing. Offered some Tessalon Perles and diclofenac to help with his chest wall pain. Patient accepted. Symptoms likely viral in etiology. Discussed [id number] medication use and duration of illness. Anticipatory guidance given. Differential Diagnosis Differential diagnosis: Likely upper respiratory infection and viral infection Critical Care Time Critical Care Time Critical Care Time: No Discharge Plan Discharge Clinical Impression: Upper respiratory infection Qualifiers: URI type: unspecified URI Qualified Code(s): J06.9 - Acute upper respiratory infection, unspecified Patient Disposition: Home, Self-Care Condition: Stable Instructions: Upper Respiratory Infection (DC) Additional Instructions: Your symptoms are likely due to a viral illness, which is not treated with antibiotics. Virus symptoms can last for up to 7-10days. Take Tylenol for pain or fever. Take the diclofenac for pain and the Tessalon Perles for cough if needed. Rest and stay hydrated. Follow up with your PCP in 7-10 days if symptoms are not improving. Go to the ER immediately if you develop shortness of breath, difficulty swallowing, or any other concerning symptoms. Your blood pressure was elevated above 120/80 today at Urgent Care. This puts you above the threshold for follow up. Please schedule a followup visit with your personal physician as soon as possible, for further evaluation and treatment. Even blood pressure exceeding 120/80 may indicate pre-hypertension. Patient Language: Omani Prescriptions: New benzonatate 200 mg capsule 200 mg PO TID PRN (Reason: cough) Qty: 20 0RF diclofenac sodium 50 mg tablet,delayed release (DR/EC) 50 mg PO TID PRN (Reason: pain) Qty: 20 0RF No Action metformin 500 mg tablet extended release 24 hr 500 mg PO DAILY Qty: 90 1RF pravastatin 10 mg tablet 10 mg PO DAILY Qty: 90 2RF lisinopril-hydrochlorothiazide 20-12.5 mg tablet 1 tablet PO DAILY Qty: 30 5RF Follow-up/Referrals: Vinod Catalan MD [Primary Care Provider] - Time of Disposition: 14:23
== END 2024-05-21 14:27 | disposition home or self-care (01) ==
PROVIDERS: Emergency Provider Nurse Practitioner; PCP Family Medicine
DX: J06.9 Acute upper respiratory infection, unspecified (principal); E11.9 Type 2 diabetes mellitus without complications; E78.5 Hyperlipidemia, unspecified; I10 Essential (primary) hypertension; Z87.891 Personal history of nicotine dependence
CPT/HCPCS: 99213; G0463

== ENCOUNTER 2024-05-31 14:17 | Outpatient (CLI) | payer OTHER, SELFPAY ==
--- NOTE | ~2024-05-31 | XR_ITS ---
XR chest 2V Ordering provider: Paige Carlson PA-C History: 59 years Male with . R05.9 - Cough, unspecified . Comparison: May 05, 2023 FINDINGS: MEDIASTINUM: The cardiac silhouette is not enlarged. LUNGS: No infiltrates, effusions or pneumothorax. OTHER: No free air under the diaphragm. IMPRESSION: No acute cardiopulmonary pathology. Reviewed, dictated and finalized at location A. OM MAN
== END 2024-05-31 14:18 | disposition home or self-care (01) ==
PROVIDERS: PCP Family Medicine; Visit Provider Physician Assistant
DX: R05.9 Cough, unspecified (principal)
CPT/HCPCS: 71046

== ENCOUNTER 2024-06-30 13:30 | Outpatient (CLI) | payer OTHER, SELFPAY ==
--- NOTE | ~2024-06-30 | XR_ITS ---
CHEST RADIOGRAPH, PA AND LATERAL CLINICAL HISTORY: U07.1 - COVID-19 SOB, CONGESTION, BODY ACHES . COMPARISON: 05/31/2024 TECHNIQUE: PA and lateral views of the chest. FINDINGS The cardiomediastinal silhouette is unremarkable. The lungs are clear. Visualized osseous structures and soft tissues are unremarkable. IMPRESSION: No focal infiltrate or effusion. Reviewed, dictated and finalized at location A. SPECIALIST
--- OUTSIDE RECORDS SUMMARY | 2024-06-30 13:33 | XMS_ITS | Data Portability ---
Author Organization [facility] KIMBERLEEArpita [facility] Address [address] [place] [address] Assessment No assessment recorded. Plan of Treatment Reminders Order Date Submit Date Provider Last Modified By Organization Details Last Modified Time Details Appointments None recorded . Lab PSA, serum or plasma 2014 015 [facility], [address] [place] [address], [address], [place], [address], 5 06:21:57 CBC 2014 015 [facility], [address] [place] [address], [address], [place], [address], 5 06:21:56 CMP, serum or plasma 2014 015 [facility], [address] [place] [address], [address], [place], [address], 5 06:21:55 lipid panel, serum 2014 015 [facility], [address] [place] [address], [address], [place], [address], 5 06:21:[address] referral - screenin g colonosc opy. 2014 015 [facility], [address] [facility] [address], [place], [address], 5 16:32:51 Procedures None recorded . Surgeries None recorded . Imaging x-ray, chest, 2 view 2014 015 [facility] Not available 5 17:36:24 Medication Orders amoxicil dionisio 875 mg-potas sium clavulan ate 125 mg tablet 2014 015 [facility] [address] [facility], [place], [address], 5 15:16:06 nicotine 21 mg/24 hr daily transder mal patch 2014 015 [email or web address] [facility] [address], [place], [address], 6 16:03:23 azithrom ycin 250 mg tablet 2015 016 [facility] [address], [place], [address], 6 16:22:17 Tessalon Perles 100 mg capsule 2015 016 [facility] [address], [place], [address], 6 16:22:17 Patient TargetsNo targets recorded. Patient Instructions Encounter Date Encounter Id Patient Instructions Last Modified By Organization Details Last Modified Time 07/27/2014 [id number] Acute Sinusitis: Care Instructions [email or web address] Not available 07/27/2014 15:45:07 bronchitis: care instructions [email or web address] Not available 08/03/2014 09:52:37 10/04/2014 [id number] cough: care instructions [email or web address] Not available 10/04/2014 14:44:33 bronchitis: care instructions [email or web address] Not available 10/04/2014 14:44:33 07/03/2015 [id number] bronchitis: care instructions [email or web address] Not available 07/04/2015 11:48:39 Reason for Referral screening colonoscopy. Referring Physician: Puneet Suarez, Internal Medicine, Encounter Date: 10/04/2014 Results Created Date Observation Date Name Description Value Unit Range Abnormal Flag Note LastModifiedBy Organization Detail LastModifiedTime 12/22/19 15 12/22/2014 CMP, serum or plasm a glucose, serum 108 mg/dL 65-99 above high normal Not Available [facility] ([facility]) [address] [facility] [place], [address], 12/22/2014 06:21:55 12/22/19 15 12/22/2014 CMP, serum or plasm a BUN 13 mg/dL 6-24 Not Available [facility] ([facility]) [address] [facility] [place], [address], 12/22/2014 06:21:55 12/22/19 15 12/22/2014 CMP, serum or plasm a creatinine, serum 1.11 mg/dL 0.76-1 .27 Not Available [facility] ([facility]) [address] [facility] [place], [address], 12/22/2014 06:21:55 12/22/19 15 12/22/2014 CMP, serum or plasm a eGFR if nonafricn AM 76 mL/mi n/1.7 3 >59 Not Available [facility] ([facility]) [address] [facility] [place], [address], 12/22/2014 06:21:55 12/22/19 15 12/22/2014 CMP, serum or plasm a eGFR if africn AM 88 mL/mi n/1.7 3 >59 Not Available [facility] ([facility]) [address] [place], [address], 12/22/2014 06:21:55 12/22/19 15 12/22/2014 CMP, serum or plasm a BUN/creatini ne ratio 12 9-20 Not Available [facility] ([facility]) [address] [place], [address], 12/22/2014 06:21:55 12/22/19 15 12/22/2014 CMP, serum or plasm a sodium, serum 141 mmol/ L 134-14 4 Not Available [facility] ([facility]) [address] [place], [address], 12/22/2014 06:21:55 12/22/1912/22/2014 CMP, serum or plasm a potassium, serum 4.6 mmol/ L 3.5-5. 2 Not Available [facility] ([facility]) [address] [facility] [place], [address], 12/22/2014 06:21:55 12/22/1912/22/2014 CMP, serum or plasm a chloride, serum 103 mmol/ L 97-108 Not Available [facility] ([facility]) [address] [facility] [place], [address], 12/22/2014 06:21:55 12/22/1912/22/2014 CMP, serum or plasm a carbon dioxide, total 21 mmol/ L 18-29 Not Available [facility] ([facility]) [address] [facility] [place], [address], 12/22/2014 06:21:55 12/22/1912/22/2014 CMP, serum or plasm a calcium, serum 9.3 mg/dL 8.7-10 .2 Not Available [facility] ([facility]) [address] [facility] [place], [address], 12/22/2014 06:21:55 12/22/1912/22/2014 CMP, serum or plasm a protein, total, serum 6.6 g/dL 6.0-8. 5 Not Available [facility] ([facility]) [address] [facility] [place], [address], 12/22/2014 06:21:55 12/22/1912/22/2014 CMP, serum or plasm a albumin, serum 4.4 g/dL 3.5-5. 5 Not Available [facility] ([facility]) [address] [facility] [place], [address], 12/22/2014 06:21:55 12/22/1912/22/2014 CMP, serum or plasm a globulin, total 2.2 g/dL 1.5-4. 5 Not Available [facility] ([facility]) [address] [facility] [place], [address], 12/22/2014 06:21:55 12/22/1912/22/2014 CMP, serum or plasm a A/G ratio 2.0 1.1-2. 5 Not Available [facility] ([facility]) [address] [facility] [place], [address], 12/22/2014 06:21:55 12/22/1912/22/2014 CMP, serum or plasm a bilirubin, total 0.3 mg/dL 0.0-1. 2 Not Available [facility] ([facility]) [address] [facility] [place], [address], 12/22/2014 06:21:55 12/22/1912/22/2014 CMP, serum or plasm a alkaline phosphatase, S 81 IU/L 39-117 Not Available [facility] ([facility]) [address] [facility] [place], [address], 12/22/2014 06:21:55 12/22/1912/22/2014 CMP, serum or plasm a AST (SGOT) 31 IU/L 0-40 Not Available [facility] ([facility]) [address] [place], [address], 12/22/2014 06:21:55 12/22/1912/22/2014 CMP, serum or plasm a ALT (SGPT) 58 IU/L 0-44 above high normal Not Available [facility] ([facility]) [address] [facility] [place], [address], 12/22/2014 06:21:55 12/22/1912/22/2014 CBC WBC 8.4 x10e3 /uL 3.4-10 .8 Not Available [facility] ([facility]) [address] [place], [address], 12/22/2014 06:21:56 12/22/19 15 12/22/2014 CBC RBC 4.79 x10e6 /uL 4.14-5 .80 Not Available [facility] ([facility]) [address] [place], [address], 12/22/2014 06:21:56 12/22/19 15 12/22/2014 CBC hemoglobin 14.5 g/dL 12.6-1 7.7 Not Available [facility] ([facility]) [address] [place], [address], 12/22/2014 06:21:56 12/22/1912/22/2014 CBC hematocrit 45.1 % 37.5-5 1.0 Not Available [facility] ([facility]) [address] [facility] [place], [address], 12/22/2014 06:21:56 12/22/1912/22/2014 CBC MCV 94 fL 79-97 Not Available [facility] ([facility]) [address] [facility] [place], [address], 12/22/2014 06:21:56 12/22/19 15 12/22/2014 CBC MCH 30.3 pg 26.6-3 3.0 Not Available [facility] ([facility]) [address] [place], [address], 12/22/2014 06:21:56 12/22/1912/22/2014 CBC MCHC 32.2 g/dL 31.5-3 5.7 Not Available [facility] ([facility] [address] [facility] [place], [address], 12/22/2014 06:21:56 12/22/1912/22/2014 CBC RDW 14.9 % 12.3-1 5.4 Not Available [facility] ([facility]) [address] [place], [address], 12/22/2014 06:21:56 12/22/19 15 12/22/2014 CBC platelets 427 x10e3 /uL 150-37 9 above high normal Not Available [facility] ([facility]) [address] [facility] [place], [address], 12/22/2014 06:21:56 12/22/19 15 12/22/2014 CBC NRBC [employer] Not Available [facility] ([facility]) [address] [place], [address], 12/22/2014 06:21:56 12/22/19 15 12/22/2014 lipid panel , serum cholesterol, total 150 mg/dL 100-19 9 Not Available [facility] ([facility]) [address] [place], [address], 12/22/2014 06:21:56 12/22/19 15 12/22/2014 lipid panel , serum triglyceride s 132 mg/dL 0-149 Not Available [facility] ([facility]) [address] [facility] [place], [address], 12/22/2014 06:21:56 12/22/19 15 12/22/2014 lipid panel , serum HDL cholesterol 39 mg/dL >39 below low normal ACCOR DING TO ATP-I II GUIDE LINES , HDL-C >59 MG/DL IS CONSI DERED A NEGAT KYLAH RISK FACTO R FOR CHD. Not Available [facility] ([facility]) [address] [facility], [place], [address], 12/22/2014 06:21:56 12/22/19 15 12/22/2014 lipid panel , serum VLDL cholesterol champ 26 mg/dL 5-40 Not Available [facility] ([facility]) [address] [place], [address], 12/22/2014 06:21:56 12/22/19 15 12/22/2014 lipid panel , serum LDL cholesterol calc 85 mg/dL 0-99 Not Available [facility] ([facility]) [address] [facility], [place], [address], 12/22/2014 06:21:56 12/22/19 15 12/22/2014 lipid panel , serum comment: [employer] Not Available [facility] ([facility]) [address] [facility], [place], [address], 12/22/2014 06:21:56 12/22/19 15 12/22/2014 PSA, serum or plasm a prostate specific Ag, serum 0.7 NG/mL 0.0-4. 0 XAVIER ECLIA METHO DOLOG Y. ACCOR DING TO THE [employer] [facility] [employer] N, SERUM PSA SHOUL D DECRE ASE AND REMAI N AT UNDET ECTAB LE LEVEL S AFTER RADIC AL PROST ATECT ESTELITA. THE AUA DEFIN ES BIOCH EMICA L RECUR RENCE AN INITI AL PSA VALUE 0.2 NG/ML OR GREAT ER FOLLO WED BY A SUBSE QUENT CONFI RMATO RY PSA VALUE 0.2 NG/ML OR GREAT ER. VALUE S OBTAI GONZALES WITH DIFFE RENT ASSAY METHO DS OR KITS CANNO T BE USED INTER DAVISON EABLY . RESUL TS CANNO T BE INTER PRETE D ABSOL LUKE EVIDE NCE OF THE PRESE NCE OR ABSEN CE OF AMARJIT SUAREZ SE. Not Available [facility] ([facility]) [address] [facility], [place], [address], 12/22/2014 06:21:56 10/05/19 15 10/04/2014 x-ray , chest , 2 view No observ ation record ed. [facility] (Imaging) [address], [place], [address], 10/05/2014 09:11:47 10/09/19 15 10/04/2014 x-ray , chest , 2 view No observ ation record ed. [email or web address] Not Available 2014 16:40:50 05/01/20 15 02/28/2013 x-ray , lumba r spine No observ ation record ed. [email or web address] Not Available 2014 14:33:11 05/01/20 15 02/28/2013 x-ray , shoul fan, 2 views No observ ation record ed. [address] [place] [address], [address], 05/07/2015 14:33:45 Result Notes None recorded. Problems Name Problem SNOMED Code Status Onset Date Resolution Date Notes Provider Name and Address Organization Details Recorded Time Acute bronchitis 66962882 Active Puneet Suarez null, [place] - [facility] 6 16:22:17 Acute sinusitis 76867315 Active Lindsay Bennett [place], [place] [facility] 5 15:45:07 Cough 78847713 Active [place]une[place] [facility] 5 14:44:33 Tobacco user 123016932 Active Puneet Jeffreyche [place], [place] [facility] 6 16:22:17 Problem Notes None recorded. Procedures Surgical History None recorded. Imaging Results Imaging Date Name Status LastModified by Organiz ation Details LastModified Time 10/04/2014 x-ray, chest, 2 view completed [facility] ([facility]) [address] [place] [address] [place] [address], [address], 10/05/2014 09:11:47 10/04/2014 x-ray, chest, 2 view completed [email or web address] Information not available 10/08/2014 16:40:50 02/28/2013 x-ray, lumbar spine [email or web address] Information not available 05/07/2015 14:33:11 02/28/2013 x-ray, shoulder, 2 views completed [address] [place] [address] [address], [place], [address], 05/07/2015 14:33:45 Procedure Notes None recorded. Medical Equipment None Reported. Allergies No known drug allergies Medications Name Sig Start Date Stop Date Status Note LastModified by Organization Details LastModified Time azithromycin 250 mg tablet TAKE 2 TABLETS (500 MG) BY ORAL ROUTE ONCE DAILY FOR 1 DAY THEN 1 TABLET (250 MG) BY ORAL ROUTE ONCE DAILY FOR 4 DAYS 2015 active Not Available Not Available Not Avai lable Tessalon Perles 100 mg capsule Take 1 capsule 3 times a day by oral route. 2015 active Not Available Not Available Not Avai lable nicotine 21 mg/24 hr daily transdermal patch Apply 1 patch every day by transdermal route for 42 days. active Not Available Not Available No t Available amoxicillin 875 mg-potassium clavulanate 125 mg tablet Take 1 tablet every 12 hours by oral route for 10 days. active Not Available Not Available No t Available Vitals Date Recorded Respiratory rate Oxygen saturation Oxygen saturation in Arterial blood by Pulse oximetry Body weight Heart rate Body mass index (BMI) Body height Body temperature Systolic blood pressure Diastolic blood pressure Provider Name and Address Organization Details Last Updated DateTime 5 16 /min 97 % 97 % 15705.6 5874 g 80 /min 28.2 kg/m2 180.34 cm 98.3 [degF] 120 mm[Hg] 82 mm[Hg] Hanane noe [place] - [facility] 5 14:15:03 Date Recorded Respiratory rate Body weight Oxygen saturation Oxygen saturation in Arterial blood by Pulse oximetry Body height Body mass index (BMI) Body temperature Heart rate Systolic blood pressure Diastolic blood pressure Provider Name and Address Organization Details Last Updated DateTime 5 16 /min 44698.0 6637 g 98 % 98 % 180.34 cm 28 kg/m2 98.5 [degF] 70 /min 120 mm[Hg] 80 mm[Hg] Hanane noe [place] - [facility] 5 14:48:53 Date Recorded Respiratory rate Heart rate Body mass index (BMI) Body weight Oxygen saturation Oxygen saturation in Arterial blood by Pulse oximetry Body temperature Body height Systolic blood pressure Diastolic blood pressure Provider Name and Address Organization Details Last Updated DateTime 6 16 /min 86 /min 28.7 kg/m2 49540.0 2822 g 94 % 94 % 99.9 [degF] 180.34 cm 120 mm[Hg] 80 mm[Hg] Hanane noe [place] - [facility] 6 16:03:14 Date Recorded Oxygen saturation Oxygen saturation in Arterial blood by Pulse oximetry Body weight Body temperature Heart rate Body mass index (BMI) Body height Systolic blood pressure Diastolic blood pressure Provider Name and Address Organization Details Last Updated DateTime 5 97 % 97 % 57341.3 52078 g 99.6 [degF] 77 /min 28.9 kg/m2 180.34 cm 134 mm[Hg] 84 mm[Hg] Flor Hernandez MA [facility] 5 15:35:42 Social History Question Answer Notes LastModified by Organizat ion Details LastModified Time Tobacco Smoking Status Current Every Day Smoker TAMIKA Vance, [facility] 07/27/2014 15:35:42 What Is Your Level Of Alcohol Consumption? Occasional [email or web address] Information not available 07/27/2014 What Is Your Level Of Caffeine Consumption? Moderate [email or web address] Information not available 07/27/2014 What Type Of Diet Are You Following? REGULAR [email or web address] Information not available 07/27/2014 General Stress Level Medium [email or web address] Information not available 07/27/2014 Sex: Unknown Functional Status Question Answer Note LastModified by Organization D etails LastModified Time What is your exercise level? None Information not available 07/27/2014 Mental Status None recorded. Family History Relationship Description Onset Age of this Age Resolved Age Notes LastModified by Organization Details LastModified Time Mother Carcinoma of colon [email or web address] Not available 2014 15:35:42 Medical History Condition Response Headaches Y Allergies Y Immunizations Vaccine Type Date Status Note Provider Nam e and Address Organization Details Recorded Time Tdap 04/10/2009 [facility] 14:36:36 Past Encounters Encounter ID Performer Location Encounter Start Date Encounter Closed Date Diagnosis/Indication Diagnosis SNOMED-CT Code Diagnosis ICD10 Code Diagnosis Note [id number] [facility] (Adult Med) [address] [place] [address] 07/27/2014 15:19:04 07/27/2014 16:08:55 Acute bronchitis 89333388 cough med otc prn. Acute sinusitis 91548981 Fluids and hand hygiene. Augmentin ordered. [id number] [facility] (Adult Med) [address] [place] [address] 10/04/2014 13:49:54 10/04/2014 14:48:44 Acute bronchitis 96741326 Likely Viral. Advised patient to take otc Mucinex. Follow up as needed. Cough 31501987 Patient is c/o recurrent cough since July. Chronic smoker. Advised patient to quit smoking. Will do CXR. Tobacco user 453453851 A dvised patient to quit smoking. Start Nicotine patche 21 mg once daily for 6 weeks and then Nicotine patches 14 mg once daily for 2 weeks and then Nicotone patches 7 mg once daily for 2 weeks. Screening for malignant neoplasm of colon [id number] [facility] (Adult Med) [address] [place] [address] 12/18/2014 14:36:12 12/18/2014 17:32:56 Adult health examination [id number] No active symptoms. Physical exam unremarkab le. Screening for malignant neoplasm of prostate 935092027 Screening for malignant neoplasm of colon 104571725 Patient was referred to [facility] for screening colonoscop y. [id number] Puneet Jeffreymala [facility] (Adult Med) [address] [place] [address] 07/03/2015 15:43:47 07/04/2015 12:21:16 Acute bronchitis 06531945 J20.9 Cough x 2 weeks. Advised patient to take otc Mucinex. Azithromyc in for 5 days. Tessalon pearls 100 mg po tid . Advised patient to quit smoking. Follow up as needed. Tobacco user 335002948 Z 72.0 Advised patient to quit smoking. Health Concerns Section Related Observation LastModified by Organization Detai ls LastModified Time None Recorded Concern Status LastModified by Organization Details LastModified Time None Recorded Advance Directives Directive None Recorded Payers Encounter Date Sequence Insurance Name Policy Number Policy Paulino Covered Member ID Paulino Member ID Guarantor Name 07/27/2014 1 [employer] - DOS PRIOR TO 20 - [facility] [employer] [id number] Renny Askew [id number] Renny Askew 10/04/2014 1 [employer] - DOS PRIOR TO 20 - [facility] [employer] [id number] Renny Askew [id number] Renny Askew 12/18/2014 1 [employer] - DOS PRIOR TO 20 - [facility] [employer] [id number] Renny Askew [id number] Renny Askew 07/03/2015 1 [employer] - DOS PRIOR TO 20 - [facility] [employer] [id number] Renny Askew [id number] Renny Askew Notes Date Note Type Note Provider Name and Address Organization Details Recorded Time 07/03/2015 text/html CoughReported bypatient.Severity: worsening Duration:symptoms lasting over 2 weeks Context:smoker;hist ory of bronchitis Associated Symptoms:no fever; no chest pain; no heartburn; no nausea; no vomiting; no wheezing; no post nasal drip;chills JEAN MARIE Xavier - [facility] 07/03/2015 16:22:23
--- OUTSIDE RECORDS SUMMARY | 2024-06-30 13:34 | XMS_ITS | Clinical Summary ---
Author Organization [facility] Address [address] [place] [address] Phone Care Team Providers Care Porcelain Turner Name Role Phone Vinod Catalan MD Primary Care Provider Allergies No known active allergies Medications lisinopril-hydro CHLOROthiazide (PRINZIDE, ZESTORETIC) 10-12.5 MG Tablet Take 1 Tablet by mouth daily. Active aspirin 81 MG Chewable Tablet Take 81 mg by mouth daily. Active loratadine (CLARITIN) 10 MG Tablet Take 10 mg by mouth daily. Active pravastatin (PRAVACHOL) 10 MG Tablet Take 10 mg by mouth daily. Active Social History Tobacco Use Types Packs/Day Years Used Date Smoking Tobacco: Never Assessed Sex and Gender Information Value Date Recorded Sex Assigned at Not on file Legal Sex Male 2:08 PM CDT Gender Identity Not on file Sexual Orientation Not on file Last Filed Vital Signs Vital Sign Reading Time Taken Comments Blood Pressure 127/71 02/13/2022 7:15 PM CDT Pulse 69 02/13/2022 7:30 PM CDT Temperature 35.9 C (96.7 F) 02/13/2022 2:11 PM CDT Respiratory Rate 22 02/13/2022 7:30 PM CDT Oxygen Saturation 97% 02/13/2022 7:30 PM CDT Inhaled Oxygen Concentration - - Weight 92.5 kg (204 lb) 02/13/2022 2:11 PM CDT Height 180.3 cm (5' 11 ) 02/13/2022 2:11 PM CDT Body Mass Index 28.45 02/13/2022 2:11 PM CDT Plan of Treatment Health Maintenance Due Date Last Done Comments Hepatitis C Virus (HCV) Screening 1965 Colonoscopy 01/29/2008 Colorectal Cancer Screening 01/29/2008 Cologuard 2013 Immunochemical Fecal Occult Blood 2013 Pneumococcal Immunization (5 0+ years) (1 of 1 - PCV) 2013 Zoster Immunization (1 of 2) 2013 PSA Discussion 2018 Influenza Immunization (#1) 2024 SARS-COV-2 Immunization ( season) 2024 12/07/2021, 03/28/2021, 07/30/2020 Respiratory Syncytial Virus (RSV) Immunization (Adult) (1 - 1-dose 75+ series) 2038 DTaP/Tdap/Td Immunization Discontinued 04/10/2009 TdaP Immunization Completed 04/10/2009 Hepatitis B Immunization Aged Out No longer eligible based on patient's age to complete this topic Meningococcal Immunization (ACWY) Aged Out No longer eligible based on patient's age to complete this topic Pneumococcal Immunization Combined Aged Out No longer eligible based on patient's age to complete this topic Rotavirus Immunization Aged Out No lo nger eligible based on patient's age to complete this topic Insurance Care Teams Porcelain Turner Relationship Specialty Start Date End Date Vinod Catalan MD [address] [place] [address] PCP - General Family Medicine 02/13/22
== END 2024-06-30 13:31 | disposition home or self-care (01) ==
PROVIDERS: PCP Family Medicine; Visit Provider Physician Assistant
DX: U07.1 COVID-19 (principal)
CPT/HCPCS: 71046

== ENCOUNTER 2024-09-08 08:42 | Outpatient (CLI) | payer OTHER, SELFPAY ==
--- NOTE | ~2024-09-08 | CT_ITS ---
CT Scan of the Chest without Contrast: Clinical Indication: Lung cancer screening, nicotine dependence Technique: Contiguous sections were acquired throughout the chest without intravenous contrast. Dose reduction technique was used on this scan by utilizing automated exposure control and iterative recon struction technique. The dose-length product (DLP) was 105.77 mGy-cm. COMPARISON: 09/08/2023 Findings: There is no evidence of any significant mediastinal, hilar or axillary lymphadenopathy. The mediastin al soft tissues appear normal. There is no evidence of pleural or pericardial effusion. The lungs are clear. No pulmonary nodules or infiltrates are noted. Images through the upper abdomen reveal no abnormalities. Impression: Lung RADS 1: Negative. 12 month follow-up screening CT advised. Reviewed, dictated and finalized at location . Impression: Lung RADS 1: Negative. 12 month follow-up screening CT advised.
--- OUTSIDE RECORDS SUMMARY | 2024-09-08 08:48 | XMS_ITS ---
Author Organization Unknown Medications Medication Instructions Effective Dates (start - stop) Status pravastatin sodium 10 MG Oral Tablet 2022T00:00:00Z - Completed hydrochlorothiazide 12.5 MG / lisinopril 20 MG Oral Tablet - Complete d {21 (methylprednisolone 4 MG Oral Tablet) } Pack - Completed benzonatate 100 MG Oral Capsule 2023-03-25 8T00:00:00Z - Completed azithromycin 250 MG Oral Tablet 2T00:00:00Z - Completed {21 (methylprednisolone 4 MG Oral Tablet) } Pack - Completed - - Compl eted - - Compl eted pravastatin sodium 10 MG Oral Tablet 202200:00:00Z - Completed benzonatate 100 MG Oral Capsule 2023-06-24 7T00:00:00Z - Completed pravastatin sodium 10 MG Oral Tablet 202300:00:00Z - Completed - - Compl eted pravastatin sodium 10 MG Oral Tablet 2023:00:00Z - Completed - - Compl eted {21 (methylprednisolone 4 MG Oral Tablet) } Pack - Completed {21 (methylprednisolone 4 MG Oral Tablet) } Pack - Completed hydrochlorothiazide 12.5 MG / lisinopril 20 MG Oral Tablet - Complete d Patient Care team information Name Category Status Period Participants - - Proposed period not known -
--- OUTSIDE RECORDS SUMMARY | 2024-09-08 08:48 | XMS_ITS | Clinical Summary ---
Author Organization [facility] Address [address] [place] [address] Phone Care Team Providers Care Digital Account Coordinator Name Role Phone Vinod Catalan MD Primary [...] to complete this topic Insurance Care Teams Digital Account Coordinator Relationship Specialty Start Date End Date Viond Catalan MD [address] [place] [address] PCP - General Family Medicine 02/13/22
--- OUTSIDE RECORDS SUMMARY | 2024-09-08 08:48 | XMS_ITS | Data Portability ---
Author Organization [facility] KIMBERLEEArpita [facility] Address [address] [place] [address] Assessment No assessment recorded. Plan of Treatment Reminders Order Date Submit Date Provider Last Modified By Organization Details Last Modified Time Details Appointments None recorded . Lab PSA, serum or plasma 2014 015 [facility], [address] [place] [address], [address], [place], [address], 5 06:21:57 CBC 2014 015 [facility], [address] [place] [address], [address], [place], [address], 5 06:21:56 CMP, serum or plasma 2014 015 [facility], [address] [place] [address], [address], [place], [address], 5 06:21:55 lipid panel, serum 2014 015 [facility], [address] [place] [address], [address], [place], [address], 5 06:21:[address] referral - screenin g colonosc opy. 2014 015 [facility], [address], [place], [address], 5 16:32:51 Procedures None recorded . Surgeries None recorded . Imaging x-ray, chest, 2 view 2014 015 [facility] Not available 5 17:36:24 Medication Orders azithrom ycin 250 mg tablet 2015 016 [facility], [address], [place], [address], 6 16:22:17 Tessalon Perles 100 mg capsule 2015 016 [facility] [address], [address], [place], [address], 6 16:22:17 nicotine 21 mg/24 hr daily transder mal patch 2014 015 [email or web address] [address], [address], [place], [address], 6 16:03:23 amoxicil dionisio 875 mg-potas sium clavulan ate 125 mg tablet 2014 015 [facility] [address], [address], [place], [address], 5 15:16:06 Patient TargetsNo targets recorded. Patient Instructions Encounter Date Encounter Id Patient Instructions Last Modified By Organization Details Last Modified Time 07/27/2014 [id number] Acute Sinusitis: Care Instructions [email or web address] Not available 07/27/2014 15:45:07 bronchitis: care instructions [email or web address] Not available 08/03/2014 09:52:37 10/04/2014 [id number] cough: care instructions [email or web address] Not available 10/04/2014 14:44:33 bronchitis: care instructions [email or web address] Not available 10/04/2014 14:44:33 07/03/2015 [id number] bronchitis: care instructions [email or web address] Not available 07/04/2015 11:48:39 Reason for Referral screening colonoscopy. Referring Physician: Puneet Suarez, Internal Medicine, Encounter Date: 10/04/2014 Results Created Date Observation Date Name Description Value Unit Range Abnormal Flag Note LastModifiedBy Organization Detail LastModifiedTime 12/22/19 15 12/22/2014 CMP, serum or plasm a glucose, serum 108 mg/dL 65-99 above high normal Not Available [facility] ([facility]) [address] [facility] [place], [address], 12/22/2014 06:21:55 12/22/19 15 12/22/2014 CMP, serum or plasm a BUN 13 mg/dL 6-24 Not Available [facility] ([facility]) [address] [place], [address], 12/22/2014 06:21:55 12/22/19 15 12/22/2014 CMP, serum or plasm a creatinine, serum 1.11 mg/dL 0.76-1 .27 Not Available [facility] ([facility]) [address] [place], [address], 12/22/2014 06:21:55 12/22/19 15 12/22/2014 CMP, serum or plasm a eGFR if nonafricn AM 76 mL/mi n/1.7 3 >59 Not Available [facility] ([facility]) [address] [place], [address], 12/22/2014 06:21:55 12/22/19 15 12/22/2014 CMP, serum or plasm a eGFR if africn AM 88 mL/mi n/1.7 3 >59 Not Available [facility] ([facility]) [address] [place], [address], 12/22/2014 06:21:55 12/22/19 15 12/22/2014 CMP, serum or plasm a BUN/creatini ne ratio 12 9-20 Not Available [facility] ([facility]) [address] [place], [address], 12/22/2014 06:21:55 12/22/19 15 12/22/2014 CMP, serum or plasm a sodium, serum 141 mmol/ L 134-14 4 Not Available [facility] ([facility]) [address] [facility], [address], 12/22/2014 06:21:55 12/22/1912/22/2014 CMP, serum or plasm a potassium, serum 4.6 mmol/ L 3.5-5. 2 Not Available [facility] ([facility]) [address] [place], [address], 12/22/2014 06:21:55 12/22/1912/22/2014 CMP, serum or plasm a chloride, serum 103 mmol/ L 97-108 Not Available [facility] ([facility]) [address] [place], [address], 12/22/2014 06:21:55 12/22/1912/22/2014 CMP, serum or plasm a carbon dioxide, total 21 mmol/ L 18-29 Not Available [facility] ([facility]) [address] [place], [address], 12/22/2014 06:21:55 12/22/1912/22/2014 CMP, serum or plasm a calcium, serum 9.3 mg/dL 8.7-10 .2 Not Available [facility] ([facility]) [address] [place], [address], 12/22/2014 06:21:55 12/22/1912/22/2014 CMP, serum or plasm a protein, total, serum 6.6 g/dL 6.0-8. 5 Not Available [facility] ([facility]) [address] [place], [address], 12/22/2014 06:21:55 12/22/1912/22/2014 CMP, serum or plasm a albumin, serum 4.4 g/dL 3.5-5. 5 Not Available [facility] ([facility]) [address] [place], [address], 12/22/2014 06:21:55 12/22/1912/22/2014 CMP, serum or plasm a globulin, total 2.2 g/dL 1.5-4. 5 Not Available [facility] ([facility]) [address] [place], [address], 12/22/2014 06:21:55 12/22/1912/22/2014 CMP, serum or plasm a A/G ratio 2.0 1.1-2. 5 Not Available [facility] ([facility]) [address] [place], [address], 12/22/2014 06:21:55 12/22/1912/22/2014 CMP, serum or plasm a bilirubin, total 0.3 mg/dL 0.0-1. 2 Not Available [facility] ([facility]) [address] [place], [address], 12/22/2014 06:21:55 12/22/1912/22/2014 CMP, serum or plasm a alkaline phosphatase, S 81 IU/L 39-117 Not Available [facility] ([facility]) [address] [place], [address], 12/22/2014 06:21:55 12/22/1912/22/2014 CMP, serum or plasm a AST (SGOT) 31 IU/L 0-40 Not Available [facility] ([facility]) [address] [place], [address], 12/22/2014 06:21:55 12/22/1912/22/2014 CMP, serum or plasm a ALT (SGPT) 58 IU/L 0-44 above high normal Not Available [facility] ([facility]) [address] [place], [address], 12/22/2014 06:21:55 12/22/1912/22/2014 CBC WBC 8.4 x10e3 /uL 3.4-10 .8 Not Available [facility] ([facility]) [address] [place], [address], 12/22/2014 06:21:56 12/22/19 15 12/22/2014 CBC RBC 4.79 x10e6 /uL 4.14-5 .80 Not Available [facility] ([facility]) [address] [place], [address], 12/22/2014 06:21:56 12/22/19 15 12/22/2014 CBC hemoglobin 14.5 g/dL 12.6-1 7.7 Not Available [facility] ([facility]) [address] [place], [address], 12/22/2014 06:21:56 12/22/1912/22/2014 CBC hematocrit 45.1 % 37.5-5 1.0 Not Available [facility] ([facility]) [address] [place], [address], 12/22/2014 06:21:56 12/22/1912/22/2014 CBC MCV 94 fL 79-97 Not Available [facility] ([facility] [address] [facility] [place], [address], 12/22/2014 06:21:56 12/22/19 15 12/22/2014 CBC MCH 30.3 pg 26.6-3 3.0 Not Available [facility] ([facility]) [address] [place], [address], 12/22/2014 06:21:56 12/22/1912/22/2014 CBC MCHC 32.2 g/dL 31.5-3 5.7 Not Available [facility] ([facility]) [address] [facility] [place], [address], 12/22/2014 06:21:56 12/22/1912/22/2014 CBC RDW 14.9 % 12.3-1 5.4 Not Available [facility] ([facility]) [address] [place], [address], 12/22/2014 06:21:56 12/22/19 15 12/22/2014 CBC platelets 427 x10e3 /uL 150-37 9 above high normal Not Available [facility] ([facility]) [address] [place], [address], 12/22/2014 06:21:56 12/22/19 15 12/22/2014 CBC NRBC RETAIL PERFORMANCE SPECIALIST Not Available [facility] ([facility]) [address] [place], [address], 12/22/2014 06:21:56 12/22/19 15 12/22/2014 lipid panel , serum cholesterol, total 150 mg/dL 100-19 9 Not Available [facility] ([facility]) [address] [place], [address], 12/22/2014 06:21:56 12/22/19 15 12/22/2014 lipid panel , serum triglyceride s 132 mg/dL 0-149 Not Available [facility] ([facility]) [address] [place], [address], 12/22/2014 06:21:56 12/22/19 15 12/22/2014 lipid panel , serum HDL cholesterol 39 mg/dL >39 below low normal ACCOR DING TO ATP-I II GUIDE LINES , HDL-C >59 MG/DL IS CONSI DERED A NEGAT KYLAH RISK FACTO R FOR CHD. Not Available [facility] ([facility]) [address] [facility], [place], [address], 12/22/2014 06:21:56 12/22/19 15 12/22/2014 lipid panel , serum VLDL cholesterol champ 26 mg/dL 5-40 Not Available [facility] ([facility]) [address] [place], [address], 12/22/2014 06:21:56 12/22/19 15 12/22/2014 lipid panel , serum LDL cholesterol calc 85 mg/dL 0-99 Not Available [facility] ([facility]) [address] [facility], [place], [address], 12/22/2014 06:21:56 12/22/19 15 12/22/2014 lipid panel , serum comment: RETAIL PERFORMANCE SPECIALIST Not Available [facility] ([facility]) [address] [facility], [place], [address], 12/22/2014 06:21:56 12/22/19 15 12/22/2014 PSA, serum [...] CANNO T BE INTER PRETE D ABSOL [place] TRIBE EVIDE NCE OF THE PRESE NCE OR ABSEN CE OF AMARJIT SUAREZ SE. Not Available [facility] ([facility]) [address] [facility], [place], [address], 12/22/2014 06:21:56 10/05/19 15 10/04/2014 x-ray , chest , 2 view No observ ation record ed. [facility] ([facility]) [address], [place], [address], 10/05/2014 09:11:47 10/09/19 15 10/04/2014 x-ray , chest , 2 view No observ ation record ed. [email or web address] Not Available 2014 16:40:50 05/01/20 15 02/28/2013 x-ray , lumba r spine No observ ation record ed. [email or web address] Not Available 2014 14:33:11 05/01/20 15 02/28/2013 x-ray , shoul fan, 2 views No observ ation record ed. [address] [place] [address], [address], 05/07/2015 14:33:45 Result Notes None recorded. Problems Name Problem SNOMED Code Status Onset Date Resolution Date Notes Provider Name and Address Organization Details Recorded Time Acute bronchitis 36509780 Active Puneet Suarez null, [place] - [facility] 6 16:22:17 Acute sinusitis 30753277 Active Lindsay Bennett [place], [place] [facility] 5 15:45:07 Cough 00395985 Active [place] [facility] 5 14:44:33 Tobacco user 116539751 Active Puneet Jeffreyche [place], [place] [facility] 6 16:22:17 Problem Notes None recorded. Procedures Surgical History None recorded. Imaging Results Imaging Date Name Status LastModified by Organiz ation Details LastModified Time 10/04/2014 x-ray, chest, 2 view completed [facility] ([facility]) [address] [place] [address] [place] [address], [address], 10/05/2014 09:11:47 10/04/2014 x-ray, chest, 2 view completed [email or web address] Information not available 10/08/2014 16:40:50 02/28/2013 x-ray, lumbar spine [place] [id number] Information not available 05/07/2015 14:33:11 02/28/2013 x-ray, shoulder, 2 views completed [address] [place] [address] [address], [place], [address], 05/07/2015 14:33:45 Procedure Notes None recorded. Medical [...] 5 16 /min 97 % 97 % 10474.6 5874 g 80 /min 28.2 kg/m2 180.34 cm 98.3 [degF] 120 mm[Hg] 82 mm[Hg] Hanane noe MA [place] [facility] 5 14:15:03 Date Recorded Respiratory rate Body weight Oxygen saturation Oxygen saturation in Arterial blood by Pulse oximetry Body height Body mass index (BMI) Body temperature Heart rate Systolic blood pressure Diastolic blood pressure Provider Name and Address Organization Details Last Updated DateTime 5 16 /min 46624.0 6637 g 98 % 98 % 180.34 [...] 6 16 /min 86 /min 28.7 kg/m2 26529.0 2822 g 94 % 94 % 99.9 [...] Updated DateTime 5 97 % 97 % 53896.3 13500 g 99.6 [degF] 77 /min 28.9 kg/m2 180.34 cm 134 mm[Hg] 84 mm[Hg] Flor Hernandez MA [facility] 5 15:35:42 Social History Question Answer Notes LastModified by Organizat ion Details LastModified Time Tobacco Smoking Status Current Every Day Smoker TAMIKA Vance, [facility] 07/27/2014 15:35:42 What Is Your Level Of Alcohol Consumption? Occasional [email or web address] Information not available 07/27/2014 What Is Your Level Of Caffeine Consumption? Moderate Information not available 07/27/2014 What Type Of Diet Are You Following? REGULAR [email or web address] Information not available 07/27/2014 General Stress Level Medium Information not available 07/27/2014 Sex: Unknown Functional Status Question Answer Note LastModified by Organization D etails LastModified Time What is your exercise level? None [email or web address] Information not available 07/27/2014 Mental Status None recorded. Family History Relationship Description Onset Age of this Age Resolved Age Notes LastModified by Organization Details LastModified Time Mother Carcinoma of colon [email or web address] Not available 2014 15:35:42 Medical History Condition Response Headaches Y Allergies Y Immunizations Vaccine Type Date Status Note Provider Nam e and Address Organization Details Recorded Time Tdap 04/10/2009 completed [facility] 10/04/2014 14:36:36 Past Encounters Encounter ID Performer Location Encounter Start Date Encounter Closed Date Diagnosis/Indication Diagnosis SNOMED-CT Code Diagnosis ICD10 Code Diagnosis Note [id number] [facility] ([facility]ult [facility]) [address] [place] [address] 07/27/2014 15:19:04 07/27/2014 16:08:55 Acute bronchitis 44444544 cough med otc prn. Acute sinusitis 62969429 Fluids and hand hygiene. Augmentin ordered. [id number] [facility] (Adult Med) [address] [place] [address] 10/04/2014 13:49:54 10/04/2014 14:48:44 Acute bronchitis 64364858 Likely Viral. Advised patient to take otc Mucinex. Follow up as needed. Cough 88606906 Patient is c/o recurrent cough since July. Chronic smoker. Advised patient to quit smoking. Will do CXR. Tobacco user 620441149 A dvised patient to quit smoking. Start Nicotine patche 21 mg once daily for 6 weeks and then Nicotine patches 14 mg once daily for 2 weeks and then Nicotone patches 7 mg once daily for 2 weeks. Screening for malignant neoplasm of colon [id number] [facility] (Adult Med) [address] [place] [address] 12/18/2014 14:36:12 12/18/2014 17:32:56 Adult health examination 804944105 No active symptoms. Physical exam unremarkab le. Screening for malignant neoplasm of prostate 468035693 Screening for malignant neoplasm of colon 624490347 Patient was referred to [facility] for screening colonoscop y. [id number] Puneet Jeffreymala [facility] (Adult Med) [address] [place] [address] 07/03/2015 15:43:47 07/04/2015 12:21:16 Acute bronchitis 70064764 J20.9 Cough x 2 weeks. Advised patient to take otc Mucinex. Azithromyc in for 5 days. Tessalon pearls 100 mg po tid . Advised patient to quit smoking. Follow up as needed. Tobacco user 309323614 Z 72.0 Advised patient to quit smoking. Health Concerns Section Related Observation LastModified by Organization Detai ls LastModified Time None Recorded Concern Status LastModified by Organization Details LastModified Time None Recorded Advance Directives Directive None Recorded Payers Encounter Date Sequence Insurance Name Policy Number Policy Paulino Covered Member ID Paulino Member ID Guarantor Name 07/27/2014 1 [employer] - DOS PRIOR TO 20 - [facility] [employer] [id number] Renny Askew [id number] Renny Askew 10/04/2014 1 [employer] - DOS PRIOR TO 20 - [facility] [employer] [id number] Renny Askew [id number] Renny Askew 12/18/2014 1 [employer] - DOS PRIOR TO 20 - [facility] [employer] [id number] Renny Askew [id number] Renny Askew 07/03/2015 1 [employer] - DOS PRIOR TO 20 - [facility] [employer] [id number] Renny Askew [id number] Renny Askew Notes Date Note Type Note Provider Name and Address Organization Details Recorded Time 07/03/2015 text/html CoughReported bypatient.Severity: worsening Duration:symptoms lasting over 2 weeks Context:smoker;hist ory of bronchitis Associated Symptoms:no fever; no chest pain; no heartburn; no nausea; no vomiting; no wheezing; no post nasal drip;chills JEAN MARIE Xavier - [facility] 07/03/2015 16:22:23
== END 2024-09-08 08:43 | disposition home or self-care (01) ==
PROVIDERS: PCP Family Medicine; Visit Provider Family Medicine
DX: Z12.2 Encounter for screening for malignant neoplasm of respiratory organs (principal); Z87.891 Personal history of nicotine dependence
CPT/HCPCS: 71271

== ENCOUNTER 2025-04-25 14:15 | Emergency (ER) | payer OTHER, SELFPAY ==
--- NOTE | 2025-04-25 14:19 | ED.EAR ---
HPI - Ear Problem General Chief complaint: Ear Stated complaint: EARS CLOGGED Time Seen by Provider: 04/25/25 14:20 Source: patient Mode of arrival: ambulatory Limitations: no limitations History of Present Illness HPI Narrative: Renny is a 60-year-old male patient presenting to the clinic today with complaints of right ear pain/clogged. States he went to his primary care provider today and they irrigated it is here but was unable to successfully get all the ear wax out. States he has ear wax pretty far back in his ear canal. States that the primary care provider told him to come to the [facility] for further evaluation. He reports pain in his right ear is an 8/10. This is been going on for 6 days. Denies any drainage from the ear. No fevers, chills, body aches. Denies any URI symptoms. No recent swimming. Is concerned that he may have an ear infection. Related Data Allergies Allergy/AdvReac Type Severity Reaction Status Date / Time venom-honey bee Allergy Intermediate Swelling Verified 04/25/25 14:21 Review of Systems Review of Systems: Pertinent positives per HPI. Patient denies any fever, chills, rash, headache, visual changes, dizziness, cough, shortness of breath, chest pain, palpitations, nausea, vomiting, diarrhea, constipation, abdominal pain, or any urinary issues. [facility] Past Medical History Medical History Left wrist pain Left shoulder pain Type 2 diabetes mellitus without complications HLD (hyperlipidemia) Essential hypertension Wellness examination Hypercholesterolemia Hypertension Surgical History Surgical History History of skin graft Family History Family History Mother Carcinoma of colon Social History Social History Social History: Smoking packs per day: 1 Smoking cigarettes per day: 20.0 Years smoked: 20 Smoking pack-years: 20.00 Smoking status: Former smoker Tobacco type: cigarettes Second hand tobacco smoke exposure: No Smoking end date: 05/24/15 Alcohol intake: current Drinks per week: 5 Substance use: never Substance use type: does not use Lack of Transportation: No Lack of Food: Never True Current Housing: I Have Housing Concerned About Future Housing: No Difficulty Paying Gas/Electric Bills: No Difficulty Paying for Meds: No Currently Unemployed: No Education: Don't Know Difficulty w/ Childcare or Family Care: No Living arrangements: with friend(s) Occupation/Education: occupation Gender identity (if verbalized by the patient): Male Sexual Orientation (if Verbalized by the Patient): Straight or Heterosexual Spiritual care concerns: No Comments At the time of my signature, I reviewed and agree with the nursing past medical, surgical, social, and family history. There is no relevant family history pertinent to the patient complaint. Exam Narrative: General: Well-developed, well nourished, in no apparent distress Head: Normocephalic, atraumatic Eyes: Pupils equally round and reactive to light bilaterally, EOM intact, sclera and conjunctive clear, no discharge, lids normal Ears: Right ear canal impacted with cerumen, ear irrigation was performed successfully, Left TM intact and clear, Right TM intact, bulging, red, ear canals clear, no drainage, hearing in right ear improved after irrigation, grossly hearing normal. Nose: Nares patent, no discharge, no inflammation, no sinus tenderness. Mouth: Oral pharynx without lesions or masses, good dentition, MMM. Neck: Supple, trachea midline, no enlargement of anterior or posterior cervical nodes, no thyroid masses or goiter palpable. Cardio: Regular rate and rhythm, s1 and s2 normal, no murmur appreciated. Resp: Clear to auscultation bilaterally, no rhonchi, rales, wheezing or rubs Course Course Level of Care: Express Care Visit Vital Signs Vital signs: Vital Signs Temperature 36.8 C 04/25/25 14:23 Pulse Rate 73 04/25/25 14:23 Respiratory Rate 16 04/25/25 14:23 Blood Pressure 131/83 04/25/25 14:23 Pulse Oximetry 99 04/25/25 14:23 Temperature 36.8 C 04/25/25 14:23 Pulse Rate 73 04/25/25 14:23 Respiratory Rate 16 04/25/25 14:23 Blood Pressure 131/83 04/25/25 14:23 Pulse Oximetry 99 04/25/25 14:23 Procedures Ear Wax Removal Right Ear: Ear Wax Removal Date: 04/25/25 Cerumenolytic Used: other (Debrox- left in ear canal for 20 minutes prior to irrigation) Results: Re-examined: cerumen removed completely TM Examination: TM(s) erythematous (bulging) Ear Canal Exam: atraumatic Patient Tolerated Procedure: well and no complications Complications: no problems Technique: ear canal irrigated Additional Comments: Verbal consent obtained for ear irrigation. Risk and benefits explained and patient voiced understanding. Ear irrigation performed using an elephant ear and spray water bottle. Mixture of 1/2 peroxide 1/2 water used to irrigate ear canal. Cerumen impaction cleared and right TM visualized with redness. Grossly hearing normal. Patient tolerated procedure well MDM MDM Narrative Medical decision making narrative: At the time of visit patient is resting comfortably on the exam table. Patient appears to be nontoxic. Complaints of right ear pain/clogged. States he went to his primary care provider today and they irrigated it is here but was unable to successfully get all the ear wax out. States he has ear wax pretty far back in his ear canal. States that the primary care provider told him to come to the [facility] for further evaluation. He reports pain in his right ear is an 8/10. This has been going on for 6 days. Denies any drainage from the ear. No fevers, chills, body aches. Denies any URI symptoms. No recent swimming. Is concerned that he may have an ear infection. Debrox ear drops and lavage orders were placed. On exam right ear canal impacted with cerumen, ear irrigation was performed successfully, Left TM intact and clear, Right TM intact, bulging, red, ear canals clear, no drainage, hearing in right ear improved after irrigation, grossly hearing normal. Procedures: Ear irrigation was performed Verbal consent obtained for ear irrigation. Risk and benefits explained and patient voiced understanding. Ear irrigation performed using an elephant ear and spray water bottle. Mixture of 1/2 peroxide 1/2 water used to irrigate ear canal. Cerumen impaction cleared and TM visualized with bulging and redness. Grossly hearing normal. Patient tolerated procedure well Plan: Patient had a right cerumen impaction that was irrigated successfully in the clinic today using half warm water have peroxide. Patient does have right otitis media. Prescription for amoxicillin was sent to the pharmacy for 7 days. Supportive measures were discussed with the patient and they voiced understanding discharge instructions and agrees to treatment plan. Return precautions reviewed Differential Diagnosis Differential Diagnosis: Otitis media, otitis sternum eustachian tube dysfunction, cerumen impaction, upper respiratory infection, serous otitis Discharge Plan Discharge Clinical Impression: Acute right otitis media Impacted cerumen Qualifiers: Laterality: right Qualified Code(s): H61.21 - Impacted cerumen, right ear Patient Disposition: Home Condition: Stable Instructions: Antibiotic Form, Ear Infection (ED) Additional Instructions: Ear irrigation was performed in the clinic today. Take any prescribed medications only as directed-amoxicillin Tylenol/motrin as needed for pain May use heating pad to alleviate pain If you get recurrent ear infections it may be warranted to follow up with ENT. Follow up with your PCP in 3-5 days if symptoms persist. Patient Language: Greek Prescriptions: New amoxicillin 875 mg tablet 875 mg PO Q12H 7 Days Qty: 14 0RF No Action pravastatin 10 mg tablet 10 mg PO DAILY Qty: 90 2RF metformin 500 mg tablet extended release 24 hr 500 mg PO DAILY Qty: 90 2RF lisinopril-hydrochlorothiazide 20-12.5 mg tablet See Rx Instructions .ROUTE .COMPLEX Qty: 90 2RF Dose Instruction: Take 1 tablet by mouth once daily Rx Instructions: Take 1 tablet by mouth once daily fluticasone propionate 50 mcg/actuation spray,suspension 1 spray intranasal DAILY Qty: 16 0RF Rx Instructions: administer into each nostril Follow-up/Referrals: Vinod Catalan MD [Primary Care Provider, Family Practice] Stand Alone Forms: Work/School Release IP Time of Disposition: 15:15 Quality NIHSS Nursing Documentation ED NIHSS nursing documentation: reviewed/agree
[2025-04-25 14:23] VITALS: BP 131/83; PULSE 73; RESP 16; TEMP 36.8; O2SAT 99
[2025-04-25] MEDS: CARBAMIDE PEROXIDE 6.5% OT SOLN 15 ML BTL 5 DROP RIGHT EAR (14:32)
== END 2025-04-25 15:20 | disposition home or self-care (01) ==
PROVIDERS: Emergency Provider Nurse Practitioner Family; PCP Family Medicine
DX: H66.91 Otitis media, unspecified, right ear (principal); H61.21 Impacted cerumen, right ear; Z87.891 Personal history of nicotine dependence; I10 Essential (primary) hypertension; E78.00 Pure hypercholesterolemia, unspecified; E11.9 Type 2 diabetes mellitus without complications; Z79.84 Long term (current) use of oral hypoglycemic drugs
CPT/HCPCS: 69209; 99213; A9270; G0463